=== PATIENT | male | born 1940 | race Caucasian/White ===

== ENCOUNTER 2016-09-06 11:25 | Emergency (ER) | payer MEDICARE ==
[2016-09-06 11:45] VITALS: BP 153/67
--- NOTE | 2016-09-06 12:11 | UC ---
Throat Pain/Nasal Omar HPI - HPI Summary HPI Summary: sinus pain and pressure x 7 days + nasal congestion, no fever, no chills, + bilateral plugged ears no fever, no chills, + dizziness - History of Current Complaint Chief Complaint: UCEar Stated Complaint: HEAD PRESSURE,EARS CLOGGED Time Seen by Provider: 09/06/16 11:28 Hx Obtained From: Patient Onset/Duration: Gradual Onset, Lasting Days - 7, Still Present Severity: Moderate Cough: None Associated Signs & Symptoms: Positive: Sinus Discomfort, Nasal Discharge. Negative: Dysphagia, FB Sensation, Drooling, Fever, Vomiting, Rash - Allergies/Home Medications Allergies/Adverse Reactions: Allergies Allergy/AdvReac Type Severity Reaction Status Date / Time Pioglitazone [From Actos] AdvReac "Didn't Verified 09/06/16 11:34 feel well" Home Medications: Home Medications Cetirizine* [ZyrTEC 10 MG TAB*] 10 mg PO DAILY 09/06/16 [History Confirmed 09/06] Insulin REGULAR(*) 22 units SUBCUT ONCE 09/06/16 [History Confirmed 09/06/16] Multiple Vitamin [Multiple Vitamins] 1 tab PO DAILY 09/06/16 [History Confirmed 09/06/16] Sitagliptin Phosphate [Januvia] 100 mg PO DAILY 09/06/16 [History Confirmed ] PMH/Surg Hx/FS Hx/Imm Hx Cardiovascular History: Hypertension - Surgical History Surgical History: Yes Surgery Procedure, Year, and Place: lower eye lids, cataract - Family History Known Family History: Positive: Hypertension - Social History Alcohol Use: None Substance Use Type: None Smoking Status (MU): Never Smoked Tobacco Review of Systems Constitutional: Negative Skin: Negative Eyes: Negative ENT: Nasal Discharge Respiratory: Negative Cardiovascular: Negative All Other Systems Reviewed And Are Negative: Yes Physical Exam Triage Information Reviewed: Yes Appearance: Well-Appearing, No Pain Distress, Well-Nourished Vital Signs: Initial Vital Signs Temp 97.5 F 09/06/16 11:39 Pulse 57 09/06/16 11:39 Resp 16 09/06/16 11:39 BP 153/67 09/06/16 11:39 Pulse Ox 100 09/06/16 11:39 Vital Signs Reviewed: Yes Eyes: Positive: Conjunctiva Clear ENT: Positive: Normal ENT inspection, Hearing grossly normal, Pharynx normal, Nasal congestion, Nasal drainage, TMs normal. Negative: Pharyngeal erythema, TM bulging, TM dull, TM red Neck exam: Normal Neck: Positive: Supple, Nontender, No Lymphadenopathy Respiratory: Positive: Chest non-tender, Lungs clear, Normal breath sounds Cardiovascular: Positive: RRR, No Murmur, Pulses Normal Abdominal Exam: Normal Neurological Exam: Normal Neurological: Positive: Alert Skin Exam: Normal Throat Pain/Nasal Course/Dx - Differential Dx/Diagnosis Provider Diagnoses: sinusitis Discharge - Discharge Plan Condition: Stable Disposition: HOME Prescriptions: Amoxicillin/Clavulanate TAB* [Augmentin TAB 875*] 875 mg PO BID #20 tab Fluticasone NASAL * [Flonase *] 2 spray BOTH NARES DAILY #1 spray Patient Education Materials: Sinusitis (ED) Referrals: Estrella Lim MD [Primary Care Provider] - 7 Days
== END 2016-09-06 12:26 | disposition home or self-care (01) ==
LOC: UCCORT 11:25
DX: J32.9 Chronic sinusitis, unspecified (principal)
CPT/HCPCS: 99212; G0463

== ENCOUNTER 2018-05-02 09:44 | Day surgery (SDC) | payer MEDICARE ==
[~2018-05-02 09:44] MED LIST: Buffered Lidocaine 1% SYRIN* 1 ML/SYRINGE INTRADERM ONE; Lactated Ringers 1000 ML Bag* 1,000 ML IV SCH
[2018-05-02] MEDS ORDERED: ceFAZolin 2 GM PREMIX in ORs 2 GM/50 ML BAG IVPB ONE (10:19)
[2018-05-02] MEDS ORDERED: Insulin REGULAR(*) 1 UNITS UNIT SUBCUT ONE (11:11)
[2018-05-02] MEDS ORDERED: Insulin REGULAR(*) 1 UNITS UNIT ONE (11:17)
[2018-05-02] MEDS ORDERED: Lidocaine 1% MPF wEPI 200,000* 30 ML SDV ONE ×2 (11:29→12:08)
[2018-05-02] MEDS ORDERED: Ropivacaine* 2 MG/ML 20 ML VIAL (0.2%) ONE ×2 (11:30→12:09)
[2018-05-02] MEDS ORDERED: fentaNYL* 50 MCG/ML 2 ML VIAL (100 MCG VIAL) ONE (12:26)
[2018-05-02] MEDS ORDERED: Propofol* 10 MG/ML 20 ML BTL ONE (12:47)
[2018-05-02] MEDS ORDERED: Lidocaine 2% PF * 5 ML VIAL ONE (12:47)
[2018-05-02] MEDS ORDERED: EPHEDrine (Pressors)* 50 MG/ML VIAL ONE (13:06)
[2018-05-02] MEDS ORDERED: Ondansetron INJ* 2 MG/ML VIAL ONE (13:36)
[2018-05-02] MEDS ORDERED: DiMENhydriNATE IV* 50 MG/ML VIAL IV PUSH PRN (13:50)
[2018-05-02] MEDS ORDERED: Naloxone* 0.4 MG/ML 1 ML VIAL IV PRN (13:50)
[2018-05-02] MEDS ORDERED: fentaNYL* 50 MCG/ML 2 ML VIAL (100 MCG VIAL) IV PRN (13:50)
[2018-05-02] MEDS ORDERED: oxyCODONE/Acetamin 5/325 MG* TAB ONE (14:36)
[2018-05-02 15:54] VITALS: BP 169/96
--- NOTE | 2018-05-02 23:57 | OP ---
CC: PCP, Estrella Lim MD * DATE OF OPERATION: 05/02/18 - [facility] DATE OF : 36 SURGEON: Dr. Giuliano Yadav. OVERHEAD CRANE TECHNICIAN: None available. ANESTHESIOLOGIST: Dr. Stallings. ANESTHESIA: General. PRE-OP DIAGNOSIS: Right knee medial meniscus tear. POST-OP DIAGNOSIS: Right knee medial and lateral meniscal tears. OPERATIVE PROCEDURE: Right knee arthroscopy with partial medial and partial lateral meniscectomy. COMPLICATIONS: None. ESTIMATED BLOOD LOSS: Minimal. TOURNIQUET TIME: Zero minutes. INDICATIONS: Paresh Reyna is a 77-year-old male who has injured his knee approximately 2 months ago. He has failed conservative management including physical therapy, antiinflammatories, ice, heat as well as steroid injection. He elected to proceed with surgical treatment. Risks and benefits of surgery were discussed at length including but not limited to bleeding; infection; damage to nerves, vessels and surrounding structures; wound nonhealing; persistent pain; need for further surgery; scarring; stiffness; incomplete relief of symptoms; risks of anesthesia. He has elected to proceed. He underwent preoperative medical risk optimization prior to proceeding with surgery. DESCRIPTION OF PROCEDURE: The patient was greeted in the preoperative area by the attending surgeon. Correct extremity was marked and consent was confirmed. The patient was brought back to the operating suite, where he was placed in supine position on the operating table. He then underwent general anesthesia and LMA intubation. An unsterile tourniquet was placed high on the proximal thigh. The lateral post was positioned. The right leg was then prepped and draped in usual sterile fashion using chlorhexidine soap, scrub, and alcohol wipe and a final prep with ChloraPrep. After appropriate surgical pause indicating side, site, procedure, and administration of antibiotics, the knee was intraarticularly injected with 1% lidocaine with epi. The anterolateral portal was made sharply with an 11 blade. Scope was introduced into the joint. Joint was examined. The ACL and PCL were intact. There was abundant synovitis anteriorly, which was removed using the shaver. There was some mild chondrosis of the medial femoral condyle , which had grade 1 and 2 changes. There was obvious medial meniscus degenerative tearing extending posteromedially all the way to the root. Veronique and biters were used to debride this back to a stable layer. Again, stable flap was also debrided back. The knee was placed in full extension. The trochlea had grade 0 to 1 changes. The patella had grade 0 to 1 changes. The medial and lateral gutters were intact without any loose debris. The knee was placed in a [id number] position and the lateral compartment examined. There were grade 0 to 1 changes in the lateral femoral condyle, lateral plateau , but there was evidence of a longitudinal tear of the meniscus. This was then debrided back using biters and veronique. Final images were obtained. The knee was thoroughly lavaged removing any loose debris. Wounds were copiously irrigated with sterile dressing. Portals were closed with 3-0 nylon. Sterile dressings were applied as well as a cryocuff. He was awoken from anesthesia and transferred to the PACU in stable condition. POSTOPERATIVE PLAN: He will be weightbearing as tolerated with crutches or walker for the first 3 to 5 days. He will be discharged on pain medications and antibiotics due to a small abrasion about the anterior aspect of the knee that was healed. I will see the patient back in 10 to 14 days. DVT prophylaxis was considered and he will go back on his Plavix and aspirin. I will see the patient back in 10 to 14 days. [id number]/[facility] #: [id number] ALLIE
== END 2018-05-02 16:02 | disposition home or self-care (01) ==
LOC: OR 09:44
PROVIDERS: ATTEND Orthopaedic Surgery
DX: S83.241A Other tear of medial meniscus, current injury, right knee, initial encounter (principal); S83.281A Other tear of lateral meniscus, current injury, right knee, initial encounter; X58.XXXA Exposure to other specified factors, initial encounter; Y92.9 Unspecified place or not applicable; I10 Essential (primary) hypertension; K21.9 Gastro-esophageal reflux disease without esophagitis; Z86.73 Personal history of transient ischemic attack (TIA), and cerebral infarction without residual deficits; Z79.01 Long term (current) use of anticoagulants; E11.9 Type 2 diabetes mellitus without complications; Z79.4 Long term (current) use of insulin; Z87.891 Personal history of nicotine dependence
CPT/HCPCS: A9270-GY; J0690; J2001; J2405; J2704; J2795; J3010

== ENCOUNTER 2018-07-18 17:11 | Emergency (ER) | payer MEDICARE ==
[2018-07-18 17:21] VITALS: BP 152/90
--- OUTSIDE RECORDS SUMMARY | 2018-07-18 17:21 | XMS REPORT | Continuity of Care Document ---
:1940 External Reference #:[id number] Author Name Leona Marshall Care Team Providers Name Role Phone Estrella Lim MD Primary Care Physician Unavailable Payers Date Identification Numbers Payment Provider Subscriber Policy Number: [id number] Medicare Paresh Romulus PayID: [id number] [address] [place] [address] Policy Number: [id number] [facility] PayID: [id number] [address] [place] [address] Advance Directives Description No Information Available Problems Active Problems Provider Date Shoulder joint pain Celestine Duran MD Onset: 08/17/2015 Unsteady gait Norah Thapa M.D. Onset: 01/28/2016 Dizziness Norah Thapa M.D. Onset: 01/28/[address] Kelley M.D. Onset: 08/16/[address] Kelley M.D. Onset: 08/16/[address] Kelley M.D. Onset: 09/25/[address] Kelley M.D. Onset: 09/25/2017 Acute meniscal tear, medial, horizontal Giuliano Yadav MD Onset: 04/19/2018 cleavage Localized, primary osteoarthritis Giuliano Yadav MD Onset: 06/14/2018 Family History Date Family Member(s) Observation Comments General Aortic Aneurysm General Heart Disease Social History Type Date Description Comments Sex Unknown Marital Status Lives With Occupation Retired Cigarette Use Quit 50 Years Ago Cigars Quit 20 Years Ago Pipe Quit 20 Years Ago Smokeless Tobacco Never Used Smokeless Tobacco ETOH Use Denies alcohol use Recreational Drug Use Denies Drug Use Tobacco Use Start: Unknown End: Patient is a former smoker Unknown Smoking Status Reviewed: 07/17/18 Patient is a former smoker Exercise Type/Frequency Exercises regularly Allergies, Adverse Reactions, Alerts Description No Known Drug Allergies Medications Active Medications SIG Qnty Indications Ordering Provider Date Plavix 1 by mouth every 90tabs 435.9 Chata Mishra NP 01/02/2014 75mg Tablets day Clonidine HCL 1 po qd Unknown 0.1mg Tablets Aspir-81 1 by mouth every Unknown 81mg Tablets DR day Bisoprolol Fumarate 1/2 by mouth Unknown 5mg every day Tablets Valsartan 1 by mouth every Unknown 160mg Tablets day Meclizine HCL 1 tab by mouth Unknown 12.5mg every 8 hours as Tablets needed Lantus Solostar inject 20 units Unknown q day 100Unit/ML Solution Pen-Inject Vitamin D take one capsule 14caps Unknown (Ergocalciferol) by mouth once weekly [id number] Capsules Tamsulosin HCL take 1 capsule Unknown 0.4mg at bedtime Capsules Vitamin C 1 by mouth every Unknown 500mg Capsules day Multivitamin Adult 1 by mouth every Unknown day Tablets Alfuzosin HCL ER Unknown 10mg Tablets ER 24HR Rosuvastatin Calcium Unknown 5mg Tablets History Medications Oxycodone-Acetaminophen 1 tabs by 15tabs Giuliano Yadav, 05/02/2018 - 5-325mg Tablets mouth every MD 05/14/2018 4-6 hours as needed for pain Cephalexin take 1 by 12caps Giuliano Yadav, 05/02/2018 - 500mg Capsules mouth four MD 05/14/2018 times a day x 3 days post op Medrol to be taken by 21units M25.51 Celestine Duran, 10/01/2015 - 4mg TBPK mouth as 1 MD 03/16/2017 directed. Naproxen 1 po bid prn 90tabs 726.10 Tabatha Syed, 07/25/2014 - 500mg Tablets pain M.DChiki 03/16/2017 Nasonex 2 puffs both 1units [facility] 08/19/2013 - 50mcg/Act Suspension sides one per [place], 12/20/2013 day M.DChiki Astepro one puff both 3units [facility] 08/19/2013 - 0.15% Solution sides once per [place], 12/13/2013 day M.DChiki Lipitor 1 by mouth qd 90tabs Unknown - 10mg Tablets 01/27/2016 Metformin HCL 1 by mouth 60tabs Unknown - 1000mg Tablets twice a day 12/13/2017 Januvia 1 by mouth 90tabs Unknown - 100mg Tablets every day 03/13/2017 Aggrenox 1 by mouth 180caps Unknown - 25-200mg Caps ER 12HR twice a day 07/24/2014 Diovan 1 by mouth Unknown - 160mg Tablets every day 01/27/2016 Nexium 1 by mouth 90caps Unknown - 20mg Capsules DR every day 07/24/2014 Meloxicam 1 by mouth 30tabs Unknown - 15mg Tablets every day 07/24/2014 Pioglitazone HCL As directed Unknown - 15mg Tablets 01/27/2016 Atorvastatin Calcium 1 by mouth Unknown - 10mg Tablets every other 09/24/2017 day Meloxicam take 1 tab by Unknown - 7.5mg Tablets mouth qdaily 03/13/2017 with food Erythromycin apply to Unknown - 5mg/GM Ointment Sutures four 08/13/2017 times a day Medications Administered in Office Medication SIG Qnty Indications Ordering Provider Date Celestone 3 mg and 3mg Kunal Dowd MD 03/12/2018 Injection Celestone 3 mg and 3mg Hipolito Pompa M.D. 01/17/2018 Injection Depomedrol 80MG Tabatha Syed M.D. 07/25/2014 Injection Immunizations Description No Information Available Vital Signs Date Vital Result Comment 07/17/2018 1:21pm Height 72 inches 6'0" Weight 240.00 lb Heart Rate 59 /min BP Systolic 168 mmHg BP Diastolic 78 mmHg Respiratory Rate 16 /min Body Temperature 97.0 F Pain Level 7 BMI (Body Mass Index) 32.5 kg/m2 06/14/2018 11:37am Height 72 inches 6'0" Weight 240.00 lb Heart Rate 59 /min BP Systolic 140 mmHg BP Diastolic 54 mmHg Body Temperature 98.0 F Pain Level 2 BMI (Body Mass Index) 32.5 kg/m2 05/15/2018 11:13am Height 72 inches 6'0" Weight 240.00 lb Heart Rate 47 /min BP Systolic 140 mmHg BP Diastolic 70 mmHg Body Temperature 97.4 F Pain Level 3 BMI (Body Mass Index) 32.5 kg/m2 04/19/2018 12:55pm Height 72 inches 6'0" Weight 245.00 lb BP Systolic 136 mmHg BP Diastolic 64 mmHg Respiratory Rate 20 /min Pain Level 8 BMI (Body Mass Index) 33.2 kg/m2 04/16/2018 10:45am Height 72 inches 6'0" Weight 245.00 lb Heart Rate 56 /min BP Systolic Sitting 122 mmHg R BP Diastolic Sitting 76 mmHg R Respiratory Rate 20 /min Pain Level 0 BMI (Body Mass Index) 33.2 kg/m2 04/09/2018 10:29am Height 72 inches 6'0" Weight 245.00 lb Heart Rate 66 /min BP Systolic Sitting 134 mmHg R BP Diastolic Sitting 80 mmHg R Respiratory Rate 18 /min Pain Level 0 BMI (Body Mass Index) 33.2 kg/m2 03/12/2018 1:12pm Height 72 inches 6'0" Weight 248.00 lb BP Systolic Sitting 122 mmHg BP Diastolic Sitting 60 mmHg Respiratory Rate 17 /min Pain Level 9 with rotation 9/10 BMI (Body Mass Index) 33.6 kg/m2 01/17/2018 10:28am Height 72 inches 6'0" Weight 248.00 lb BP Systolic Sitting 126 mmHg BP Diastolic Sitting 68 mmHg Respiratory Rate 17 /min Pain Level 0 pain is present with ambulation. Inner aspect. BMI (Body Mass Index) 33.6 kg/m2 12/13/2017 10:09am Height 72 inches 6'0" Weight 248.00 lb Heart Rate 48 /min BP Systolic 118 mmHg BP Diastolic 82 mmHg BMI (Body Mass Index) 33.6 kg/m2 09/25/2017 10:44am Height 72 inches 6'0" Weight 243.12 lb Heart Rate 68 /min BP Systolic 120 mmHg BP Diastolic 66 mmHg BMI (Body Mass Index) 33.0 kg/m2 08/16/2017 10:52am Height 72 inches 6'0" Weight 248.50 lb Heart Rate 70 /min BP Systolic Sitting 122 mmHg BP Diastolic Sitting 68 mmHg Respiratory Rate 20 /min O2 % BldC Oximetry 96 % BMI (Body Mass Index) 33.7 kg/m2 03/17/2017 8:48am Height 72 inches 6'0" Weight 242.12 lb Heart Rate 68 /min BP Systolic Sitting 140 mmHg BP Diastolic Sitting 78 mmHg Respiratory Rate 16 /min O2 % BldC Oximetry 99 % BMI (Body Mass Index) 32.8 kg/m2 07/25/2016 1:53pm Height 72 inches 6'0" Weight 235.00 lb Heart Rate 72 /min BP Systolic Sitting 134 mmHg BP Diastolic Sitting 72 mmHg Respiratory Rate 16 /min Pain Level 0 BMI (Body Mass Index) 31.9 kg/m2 01/28/2016 10:46am Height 72 inches 6'0" Weight 235.00 lb Heart Rate 82 /min BP Systolic Sitting 142 mmHg BP Diastolic Sitting 74 mmHg BMI (Body Mass Index) 31.9 kg/m2 10/01/2015 2:25pm Heart Rate 84 /min BP Systolic Sitting 138 mmHg BP Diastolic Sitting 78 mmHg 08/17/2015 2:50pm Height 72 inches 6'0" Weight 235.00 lb Heart Rate 72 /min BP Systolic Sitting 142 mmHg BP Diastolic Sitting 66 mmHg BMI (Body Mass Index) 31.9 kg/m2 08/08/2014 9:43am Heart Rate 60 /min BP Systolic Sitting 118 mmHg BP Diastolic Sitting 70 mmHg 07/25/2014 1:32pm Height 71 inches 5'11" Weight 240.00 lb Heart Rate 68 /min BP Systolic Sitting 148 mmHg BP Diastolic Sitting 70 mmHg BMI (Body Mass Index) 33.5 kg/m2 01/02/2014 2:21pm Height 71 inches 5'11" Weight 225.00 lb Heart Rate 80 /min BP Systolic Sitting 132 mmHg BP Diastolic Sitting 72 mmHg Respiratory Rate 16 /min BMI (Body Mass Index) 31.4 kg/m2 09/16/2013 1:43pm Heart Rate 82 /min BP Systolic Sitting 132 mmHg BP Diastolic Sitting 80 mmHg Results Test Date Facility Test Result H/L Range Note Laboratory test 05/02/2018 [facility] [place] of 204 mg/dL High 70-100 [address] [place] [address] [phone] Laboratory test 05/02/2018 [facility] [place] of 282 mg/dL High 70-100 [address] [place] [address] [phone] Laboratory test 05/02/2018 [facility] [place] of 314 mg/dL High 70-100 [address] [place] [address] [phone] Protein 10/04/2017 [facility] Total 134 mg/24h <229 4 Electrophoresis Urine [address] Protein(Pep) (24HR) [place] [address] Urine [phone] Collection Duration 24 h Urine Volume 3350 mL Total Protein Concentration 4 mg/dL Albumin 100 % Impression See Comment 5 Protein 09/27/2017 [facility] Total 116 mg/24h <229 [address] Protein(Pep) Urine (24HR) [place] [address] Urine [phone] Collection Duration 24 h Urine Volume 1650 mL Total Protein Concentration 7 mg/dL Albumin 100 % Impression See Comment 7 CBC Auto Diff 01/16/2014 [facility] White Blood 8.8 10^3/uL N 4.8-10.[address] [place] [address] [phone] Red Blood Count 4.29 10^6/uL N 4.0-5.4 Hemoglobin 13.4 g/dL Low 14.0-18.0 Hematocrit 40 % Low 42-52 Mean Corpuscular Volume 93 fL N 80-94 Mean Corpuscular Hemoglobin 31 pg N 27-31 Mean Corpuscular HGB Conc 34 g/dL N 31-36 Red Cell Distribution Width 12 % N 10.5-15 Platelet Count 222 10^3/uL N 150-450 Mean Platelet Volume 8 um3 N 7.4-10.4 Abs Neutrophils 5.6 10^3/uL N 1.5-7.7 Abs Lymphocytes 1.8 10^3/uL N 1.0-4.8 Abs Monocytes 0.8 10^3/uL N 0-0.8 Abs Eosinophils 0.5 10^3/uL N 0-0.6 Abs Basophils 0.1 10^3/uL N 0-0.2 Abs Nucleated RBC 0.39 10^3/uL N Granulocyte % 64.0 % N 38-83 Lymphocyte % 20.9 % Low 25-47 Monocyte % 8.7 % N 1-9 Eosinophil % 5.6 % N 0-6 Basophil % 0.8 % N 0-2 Nucleated Red Blood Cells % 4.5 N Basic Metabolic Panel 01/16/2014 [facility] Sodium 135 mmol/L N 133-145 [address] [place] [address] [phone] Potassium 4.0 mmol/L N 3.5-5.0 9 Chloride 102 mmol/L N 101-111 Co2 Carbon Dioxide 27 mmol/L N 22-32 Anion Gap 6 mmol/L N 2-11 Glucose 164 mg/dL High 70-100 Blood Urea Nitrogen 16 mg/dL N 6-24 Creatinine 0.89 mg/dL N 0.67-1.17 BUN/Creatinine Ratio 18.0 N 8-20 Calcium 9.4 mg/dL N 8.6-10.3 Egfr Non- 83.3 N >60 Egfr 107.2 N >60 10 Inr/Protime 01/16/2014 [facility] Inr 0.93 N 0.85-1.06 [address] [place] [address] [phone] Naphthalene Operator: [id number] Naphthalene Operator: [id number] Naphthalene Operator: [id number] 4 ADDITIONAL INFORMATION On 09/06/2016 the total protein assay method changed resulting in approximately a 15% increase in protein values. 5 RESULT: Albumin is the only protein detected. Test Performed by: [address] [id number] 6 ADDITIONAL INFORMATION On 09/06/2016 the total protein assay method changed resulting in approximately a 15% increase in protein values. 7 Albumin is the only protein detected. Insufficient urine volume submitted to maximally concentrate urine. If clinically indicated, submit new sample with adequate volume. Test Performed by: [facility] - [address] [address] 8 CALL RESULTS TO [phone] 9 Potassium reference range changed effective 01/12/14 10 Because ethnic data is not always readily available, this report includes an eGFR for both -Americans and non- Americans. The National Kidney Disease Education Program (NKDEP) does not endorse the use of the MDRD equation for patients that are not between the ages of 18 and 70, are , have extremes of body size, muscle mass, or nutritional status, or are non- or non-. According to the National Kidney Foundation, irrespective of diagnosis, the stage of the disease is based on the level of kidney function: Stage Description GFR(mL/min/1.73 m(2)) 1 Kidney damage with normal or decreased GFR 90 2 Kidney damage with mild decrease in GFR 60-89 3 Moderate decrease in GFR 30-59 4 Severe decrease in GFR 15-29 5 Kidney failure <15 (or dialysis) Procedures Date Code Description Status 05/02/2018 25380 Arthroscopy,Knee,Meniscectomy Media & Lateral Completed 03/12/2018 74792 Xray Knee 3 Views Completed 03/12/2018 86094 Inject/Drain Joint/Bursa Major W/O US Completed 01/17/2018 40806 Inject/Drain Joint/Bursa Intermediate W/O US Completed 09/15/2017 16553 Neuromuscular Junction Test Completed 09/15/2017 93620 Nerve Conduction 07-08 Studies Completed 09/15/2017 46710 Needle Electromyography Each Extremity W/Related Completed Paraspinal Areas 07/25/2014 90641 Rad Shoulder Comp, Min. 2 Views Completed 07/25/201450358 Inject/Drain Joint/Bursa Major W/O US Completed 03/08/2014 48470 Mobile Cardiovascular Telemetry Over 24 HR Up To 30 Days Completed 01/16/2014 80306 Color Flow Doppler/Interp & Reprt Completed 01/16/2014 22409 Pulse Wave/Continuous-Interp.RPT Completed 01/16/2014 24926 Echocardiography, Transesophageal, Real Time W/Image 2D Completed W/W/O M-M 01/07/2014 35320 EEG Recording Awake & Drowsy Completed 08/19/2013 22940 Tympanometry Completed Encounters Type Date Location Provider Dx Diagnosis Office Visit 04/19/2018 Orthopedic Giuliano Yadav MD S83.241D Oth tear of 1:00p Services Of [facility] medial meniscus, current injury, r knee, subs M17.11 Unilateral primary osteoarthritis, right knee Office Visit 04/16/2018 10:45a Orthopedic Kunal Dorman S83.241A Oth tear of Services Of Mela Dowd MD medial AT [place] meniscus, current injury, r knee, init Office Visit 04/09/2018 10:30a Orthopedic Kunal Dorman M23.303 Oth meniscus Services Of Mela Dowd MD derangements, AT [place] unsp medial meniscus, right knee S83.411D Sprain of medial collateral ligament of right knee, subs M25.561 Pain in right knee Office Visit 03/12/2018 1:15p Mara Dorman S83.411A Sprain of medial Services Of Mela Dowd MD collateral AT [place] ligament of right knee, init M23.303 Oth meniscus derangements, unsp medial meniscus, right knee M17.11 Unilateral primary osteoarthritis, right knee M25.561 Pain in right knee Office Visit 01/17/2018 10:30a Orthopedic Services Hipolito Pompa M25.562 Pain in left Of [employer]ist AT [place] M.D. knee M13.862 Other specified arthritis, left knee Office 12/13/2017 [place]/Rick Sherman R26.81 Unsteadiness on Visit 10:15a Neurologic Serv Rolando Kelley M.D. feet [facility] R42 Dizziness and giddiness G62.9 Polyneuropathy, unspecified M62.81 Muscle weakness (generalized) R53.82 Chronic fatigue, unspecified Office Visit 09/25/2017 Rick Kelley R26.81 Unsteadiness on 11:00a Neurologic Dhara feet Services Of Mela R42 Dizziness and giddiness R53.82 Chronic fatigue, unspecified M62.81 Muscle weakness (generalized) G62.9 Polyneuropathy, unspecified Office 08/16/2017 [place]/Rick Sherman R26.81 Unsteadiness on Visit 11:00a Neurologic Serv Rolando Kelley M.D. feet [facility] R42 Dizziness and giddiness R53.82 Chronic fatigue, unspecified M62.81 Muscle weakness (generalized) Office Visit 03/17/2017 8:45a [place]/Rick Tran R42 Dizziness and Neurologic Serv Of Dhara Thapa [facility] R26.81 Unsteadiness on feet R53.1 Weakness Office Visit 07/25/2016 1:45p [place]/Rick Tran R42 Dizziness and Neurologic Serv Of Dhara Thapa [facility] R26.81 Unsteadiness on feet Office Visit 01/28/2016 11:00a Rick Neurologic Norah Tran R42 Dizziness and Services Of Dhara Serrano R26.81 Unsteadiness on feet Office Visit 10/01/2015 2:30p Sports Medicine Celestine Duran MD M25.511 Pain in right Of [facility] AT shoulder [place] M47.12 Other spondylosis with myelopathy, cervical region Office Visit 08/17/2015 Sports Fnu Roger, S46.811D Strain of 2:30p Medicine Of musc/fasc/tend at [facility] AT shldr/up arm, right [place] arm, subs M19.011 Primary osteoarthritis, right shoulder Office Visit 08/08/2014 9:45a Orthopedic Tabatha Syed, 726.10 Bursae & Tendon Services Of [facility] [place] Disorders [place] Shoulder Region Unspec 715.11 Osteoarthrosis Localized Prim Shoulder Region Office Visit 07/25/2014 1:45p Orthopedic Tabatha Syed 726.10 Bursae & Tendon Services Of [facility] [place] Disorders [place] Shoulder Region Unspec 715.11 Osteoarthrosis Localized Prim Shoulder Region 723.1 Cervicalgia Office Visit 01/02/2014 2:00p [place] [facility] Norah Tran 435.9 TIA Ischemia Services Of [facility] Dhara Thapa Cerebral Transient Unspec Office Visit 09/16/2013 1:30p ENT Services Of [place] 472.0 Rhinitis Chronic C.M.A. 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 at [place]/ [place] [facility]08/21/2018 10:10 am - Masood Rob MD at [facility] Dermatology [facility]
--- NOTE | 2018-07-18 17:30 | UC ---
General HPI - HPI Summary HPI Summary: 77-year-old male comes in with a chief complaint of fall. Patient was walking in the parking lot and he was on some uneven pavement and he's been having a sinus infection with some nausea and dizziness associated with it and he's had knee surgery with accommodation of everything he fell. Denies hitting his head. He did get an abrasion to the right elbow. No point of any other pain. - History of Current Complaint Chief Complaint: UCGeneralIllness Stated Complaint: FELL IN OUR PARKING LOT Time Seen by Provider: 07/18/18 17:21 Pain Intensity: 0 - Allergy/Home Medications Allergies/Adverse Reactions: Allergies Allergy/AdvReac Type Severity Reaction Status Date / Time pioglitazone [From Actos] AdvReac Intermediate See Comment Verified 07/18/18 17: 21 Home Medications: Home Medications Amoxicillin PO (*) [Amoxicillin 875 MG (*)] 875 mg PO BID 07/18/18 [History Confirmed 07/18/18] Ergocalciferol (Vitamin D2) [Vitamin D2] 1.25 mg DAILY 07/18/18 [History Confirmed 07/18/18] PMH/Surg Hx/FS Hx/Imm Hx Previously Healthy: Yes Endocrine History: Diabetes, Dyslipidemia Cardiovascular History: Hypertension GI/ History: Gastroesophageal Reflux - Surgical History Surgical History: Yes Surgery Procedure, Year, and Place: lower + upper eye lids x2(10 yrs ago and 2 yrs ago)- no implant(turned lower lid outward instead of tucking inward), cataract BILATERAL, esophagus-stretch x 2. right knee 04/2018 meniscus - Family History Known Family History: Positive: Hypertension - Social History Alcohol Use: None Substance Use Type: None Smoking Status (MU): Former Smoker When Did the Patient Quit Smoking/Using Tobacco: 20-25 years ago Review of Systems All Other Systems Reviewed And Are Negative: Yes Constitutional: Positive: Negative Skin: Positive: Other - see hpi Eyes: Positive: Negative ENT: Positive: Other - see hpi Respiratory: Positive: Negative Cardiovascular: Positive: Negative. Negative: Chest Pain Gastrointestinal: Positive: Negative Motor: Positive: Weakness - generalized; chronic Neurovascular: Positive: Negative Musculoskeletal: Positive: Other: - see hpi Neurological: Positive: Weakness - generalized; chronic Psychological: Positive: Negative Is Patient Immunocompromised?: No Physical Exam Triage Information Reviewed: Yes Appearance: Well-Appearing, No Pain Distress, Well-Nourished Vital Signs: Initial Vital Signs Temp 98 F 07/18/18 17:13 Pulse 69 07/18/18 17:13 Resp 19 07/18/18 17:13 BP 152/90 07/18/18 17:13 Pulse Ox 100 07/18/18 17:13 Vital Signs Reviewed: Yes Eye Exam: Normal Eyes: Positive: Conjunctiva Clear Neck: Positive: Supple Respiratory: Positive: Lungs clear, Normal breath sounds, No respiratory distress Cardiovascular: Positive: RRR Musculoskeletal: Positive: ROM Intact Neurological: Positive: Alert Psychological Exam: Normal Psychological: Positive: Normal Response To Family, Age Appropriate Behavior Skin: Positive: Other - abrasion rt forearm 10cm x 3cm Course/Dx - Course Course Of Treatment: The patient fell in the parking lot. He has a combination of chronic generalized weakness, prior right knee surgery which slows down his ability to move his right knee and also because of the sinus infection reports being slightly off balance. No other injuries found on examination. Patient denied any chest pain. But as follows primary care doctor or reevaluate sooner if worse or any questions or concerns. - Diagnoses Provider Diagnosis: Fall, Weakness, Abrasion of right forearm Discharge - Sign-Out/Discharge Documenting (check all that apply): Patient Departure All imaging exams completed and their final reports reviewed: No Studies - Discharge Plan Condition: Stable Disposition: HOME Patient Education Materials: Abrasion (ED), Weakness (ED), Fall Prevention (ED) Referrals: Estrella Lim MD [Primary Care Provider] - Additional Instructions: FOLLOW UP WITH YOUR DOCTOR IF NOT COMPLETELY IMPROVED. GET RECHECKED SOONER IF YOUR CONDITION WORSENS OR ANY QUESTIONS OR CONCERNS. - Billing Disposition and Condition Condition: STABLE Disposition: Home
== END 2018-07-18 17:45 | disposition home or self-care (01) ==
LOC: UCCORT 17:11
DX: S50.811A Abrasion of right forearm, initial encounter (principal); R53.1 Weakness; W01.0XXA Fall on same level from slipping, tripping and stumbling without subsequent striking against object, initial encounter; Y93.01 Activity, walking, marching and hiking; Y92.481 Parking lot as the place of occurrence of the external cause; E11.9 Type 2 diabetes mellitus without complications; E78.5 Hyperlipidemia, unspecified; I10 Essential (primary) hypertension; K21.9 Gastro-esophageal reflux disease without esophagitis; Z87.891 Personal history of nicotine dependence; Z88.8 Allergy status to other drugs, medicaments and biological substances
CPT/HCPCS: 99212; G0463

== ENCOUNTER 2018-10-03 15:22 | Emergency (ER) | payer MEDICARE ==
--- OUTSIDE RECORDS SUMMARY | 2018-10-03 15:51 | XMS REPORT | Continuity of Care Document ---
:1940 External Reference #:[id number] Author Name Zhanna Abarca Care Team Providers Name Role Phone Estrella Lim MD Primary Care Physician Unavailable Payers Date Identification Numbers Payment Provider Subscriber Policy Number: [id number] Medicare Paresh Reyna PayID: [id number] [address] [place] [address] Policy Number: [id number] [facility] Paresh Mylo PayID: [id number] [address] [place] [address] Problems Active Problems Provider Date Shoulder joint [...] horizontal Giuliano Yadav MD Onset: 04/19/[address] Kelley M.D. Onset: 08/08/2018 Contusion of knee Giuliano Yadav MD Onset: 07/17/2018 Sprain of foot Giuliano Yadav MD Onset: 07/17/2018 Localized, primary osteoarthritis Giuliano Yadav MD Onset: 06/14/2018 Family History Date Family Member(s) Observation Comments General Aortic Aneurysm General Heart Disease General Hypertension General Cancer Father Heart Disease Father Hypertension Mother Cancer Social History Type Date Description Comments Sex Unknown Marital Status Lives With Occupation Retired Cigarette Use Quit 50 Years Ago Cigars Quit 20 Years Ago Pipe Quit 20 Years Ago Smokeless Tobacco Never Used Smokeless Tobacco ETOH Use Denies alcohol use Recreational Drug Use Denies Drug Use Tobacco Use Start: Unknown End: Patient is a former smoker Unknown Smoking Status Reviewed: 09/26/18 Patient is a former smoker Exercise Type/Frequency Exercises rarely Allergies, Adverse Reactions, Alerts Description No Known Drug Allergies Medications Active Medications SIG Qnty Indications Ordering Provider Date Gabapentin 1 by mouth at 30caps G62.9 Moses Al, 09/26/2018 100mg Capsules bedtime N.P. Plavix 1 by mouth every 90tabs 435.9 Chata Mishra NP 01/02/2014 75mg Tablets day Aspir-81 1 by mouth every Unknown 81mg Tablets DR day Meclizine HCL 1 tab by mouth Unknown 12.5mg every 8 hours as Tablets needed Lantus Solostar inject 42 units Unknown q day 100Unit/ML Solution Pen-Inject Vitamin D take one capsule 14caps Unknown (Ergocalciferol) by mouth once weekly [id number] Capsules Vitamin C 1 by mouth every Unknown 500mg Capsules day Multivitamin Adult 1 by mouth every Unknown day Tablets Alfuzosin HCL ER 1 tab daily by Unknown 10mg mouth Tablets ER 24HR Rosuvastatin Calcium 1 tab daily by Unknown 5mg mouth Tablets Metoprolol Succinate as needed Unknown ER 25mg Tablets ER 24HR History Medications Oxycodone-Acetaminophen 1 tabs by 15tabs Giuliano Yadva, 05/02/2018 - 5-325mg Tablets mouth every MD 05/14/2018 4-6 hours as needed for pain Cephalexin take 1 by 12caps Giuliano Yadav, 05/02/2018 - 500mg Capsules mouth four MD 05/14/2018 times a day x 3 days post op [facility] M[facility].51 Fnu Roger, 10/01/2015 - 4mg TBPK mouth as 1 MD 03/16/2017 directed. Naproxen 1 po bid prn 90tabs 726.10 Tabatha Kunal, 07/25/2014 - 500mg Tablets pain M.D. 03/16/2017 Nasonex 2 puffs [address] [place] [address] 08/19/2013 - 50mcg/Act Suspension sides one per [facility], 12/20/2013 day M.D. Astepro one puff both [facility] 08/19/2013 - 0.15% Solution sides once per [facility], 12/13/2013 day M.D. Digoxin 1 by mouth Unknown - 125mcg Tablets every day 09/25/2018 Amiodarone HCL 1 by mouth Unknown - 200mg Tablets every day 09/25/2018 Doxycycline Monohydrate take 1 capsule Unknown - 100mg Capsules by mouth twice 09/25/2018 a day Erythromycin apply to Unknown - 5mg/GM Ointment Sutures four 08/13/2017 times a day Tamsulosin HCL take 1 capsule Unknown - 0.4mg Capsules at bedtime 07/24/2018 Meloxicam take 1 tab by Unknown - 7.5mg Tablets mouth qdaily 03/13/2017 with food Valsartan 1 by mouth Unknown - 160mg Tablets every day 07/23/2018 Atorvastatin Calcium 1 by mouth Unknown - 10mg Tablets every other 09/24/2017 day Bisoprolol Fumarate 1/2 by mouth Unknown - 5mg Tablets every day 07/16/2018 Pioglitazone HCL As directed Unknown - 15mg Tablets 01/27/2016 Meloxicam 1 by mouth 30tabs Unknown - 15mg Tablets every day 07/24/2014 Nexium 1 by mouth 90caps Unknown - 20mg Capsules DR every day 07/24/2014 Diovan 1 by mouth Unknown - 160mg Tablets every day 01/27/2016 Aggrenox 1 by mouth 180caps Unknown - 25-200mg Caps ER 12HR twice a day 07/24/2014 Januvia 1 by mouth 90tabs Unknown - 100mg Tablets every day 03/13/2017 Clonidine HCL 1 po qd Unknown - 0.1mg Tablets 07/23/2018 Metformin HCL 1 by mouth 60tabs Unknown - 1000mg Tablets twice a day 12/13/2017 Lipitor 1 by mouth qd 90tabs Unknown - 10mg Tablets 01/27/2016 Medications Administered in Office Medication SIG Qnty Indications Ordering Provider Date Celestone 3 mg and 3mg Kunal Dowd MD 03/12/2018 Injection Celestone 3 mg and 3mg Hipolito Pompa M.D. 01/17/2018 Injection Depomedrol 80MG Tabatha Syed M.D. 07/25/2014 Injection Vital Signs Date Vital Result Comment 09/26/2018 11:29am Height 72 inches 6'0" Weight 235.00 lb Heart Rate 79 /min BP Systolic 129 mmHg BP Diastolic 78 mmHg BMI (Body Mass Index) 31.9 kg/m2 08/08/2018 10:35am Height 72 inches 6'0" Weight 245.00 lb Heart Rate 86 /min BP Systolic 138 mmHg BP Diastolic 74 mmHg BMI (Body Mass Index) 33.2 kg/m2 07/26/2018 8:20am Height 72 inches 6'0" Weight 249.00 lb Heart Rate 78 /min BP Systolic Sitting 120 mmHg BP Diastolic Sitting 70 mmHg Respiratory Rate 18 /min Pain Level 0 BMI (Body Mass Index) 33.8 kg/m2 07/17/2018 1:21pm Height 72 inches 6'0" Weight [...] 17 /min Pain Level 9 with rotation 11/20 BMI (Body Mass Index) 33.6 kg/m2 01/17/2018 [...] Result H/L Range Note Laboratory test 05/02/2018 [facility] of 204 mg/dL High 70-100 [address] [place] [address] [phone] Laboratory test 05/02/2018 [facility] of 282 mg/dL High 70-100 [address] [place] [address] [phone] Laboratory test 05/02/2018 [facility] of 314 mg/dL High 70-100 [address] [place] [address] [phone] Protein 10/04/2017 [facility] Total 134 mg/24h <229 4 Electrophoresis Urine [address] Protein(Pep) (24HR) [place] [address] Urine [phone] Collection Duration 24 h Urine Volume 3350 mL Total Protein Concentration 4 mg/dL Albumin 100 % Impression See Comment 5 Protein 09/27/2017 [facility] Total 116 mg/24h <229 [address] Protein(Pep) Urine (24HR) [place] [address] Urine [phone] Collection Duration 24 h Urine Volume 1650 mL Total Protein Concentration 7 mg/dL Albumin 100 % Impression See Comment 7 Inr/Protime 01/16/2014 [facility] Inr 0.93 N 0.85-1.[address] [place] [address] [phone] Basic Metabolic 01/16/2014 [facility] Sodium 135 mmol/L N 133- [address] [place] [address] [phone] Potassium 4.0 mmol/L N 3.5-5.0 9 Chloride 102 mmol/L N 101-111 Co2 Carbon Dioxide 27 mmol/L N 22-32 Anion Gap 6 mmol/L N 2-11 Glucose 164 mg/dL High 70-100 Blood Urea Nitrogen 16 mg/dL N 6-24 Creatinine 0.89 mg/dL N 0.67-1.17 BUN/Creatinine Ratio 18.0 N 8-20 Calcium 9.4 mg/dL N 8.6-10.3 Egfr Non- 83.3 N >60 Egfr 107.2 N >60 10 CBC Auto Diff 01/16/2014 [facility] White Blood 8.8 10^3/uL N 4.8-10.[address] [place] [address] [phone] Red Blood Count 4.29 10^6/uL N 4.0-5.4 [...] Nucleated Red Blood Cells % 4.5 N 1 First Aid Director: [id number] First Aid Director: [id number] First Aid Director: [id number] ADDITIONAL INFORMATION On 09/06/2016 the total protein assay method changed resulting in approximately a 15% increase in protein values. 5 RESULT: Albumin is the only protein detected. Test Performed by: [address] [id number] 6 ADDITIONAL INFORMATION On 09/06/2016 the total protein assay method changed resulting in approximately a 15% increase in protein values. 7 Albumin is the only protein detected. Insufficient urine volume submitted to maximally concentrate urine. If clinically indicated, submit new sample with adequate volume. Test Performed by: [address] [id number] 8 CALL RESULTS TO [id number] 9 Potassium reference range changed effective 01/12/14 [...] dialysis) Procedures Date Code Description Status 05/02/2018 97732 Arthroscopy,Knee,Meniscectomy Media & Lateral Completed 03/12/2018 78010 Xray Knee 3 Views Completed 03/12/2018 56471 Inject/Drain Joint/Bursa Major W/O US Completed 01/17/2018 92967 Inject/Drain Joint/Bursa Intermediate W/O US Completed 09/15/2017 19530 Neuromuscular Junction Test Completed 09/15/2017 60943 Nerve Conduction 07-08 Studies Completed 09/15/2017 51706 Needle Electromyography Each Extremity W/Related Completed Paraspinal Areas 07/25/2014 32951 Rad Shoulder Comp, Min. 2 Views Completed 07/25/201456321 Inject/Drain Joint/Bursa Major W/O US Completed 03/08/2014 02132 Mobile Cardiovascular Telemetry Over 24 HR Up To 30 Days Completed 01/16/2014 98046 Color Flow Doppler/Interp & Reprt Completed 01/16/2014 12012 Pulse Wave/Continuous-Interp.RPT Completed 01/16/2014 47166 Echocardiography, Transesophageal, Real Time W/Image 2D Completed W/W/O M-M 01/07/2014 93958 EEG Recording Awake & Drowsy Completed 08/19/2013 69286 Tympanometry Completed Encounters Type Date Location Provider Dx Diagnosis Office Visit 08/08/2018 [place]/Rick Kelley, G62.9 Polyneuropathy, 10:30a Neurologic Serv Of [place] unspecified Mela R26.81 Unsteadiness on feet R53.1 Weakness I48.91 Unspecified atrial fibrillation Office Visit 07/26/2018 Orthopedic Kunal Dorman M43.06 Spondylolysis, 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 foot, initial encounter S80.01xA Contusion of right knee, initial encounter W19.xxxA Unspecified fall, initial encounter Office Visit 04/19/2018 1:00p Orthopedic Giuliano Yadav, S83.241D Oth tear of Services Of medial C.M.A. meniscus, current injury, r knee, subs M17.11 Unilateral primary osteoarthritis, right knee Office Visit 04/16/2018 10:45a Orthopedic Kunal Dorman S83.241A Oth tear of Services Of Mela Dowd MD medial AT [place] meniscus, current injury, r knee, init Office Visit 04/09/2018 10:30a Orthopedic Kunal Dorman M23.303 Oth meniscus Services Of Mela Dowd MD derangements, AT [place] unsp medial meniscus, right knee S83.411D Sprain of medial collateral ligament of right knee, subs M25.561 Pain in right knee Office Visit 03/12/2018 1:15p Orthopedic Kunal Dorman S83.411A Sprain of medial Services Of Mela Dowd MD collateral AT [place] ligament of right knee, init M23.303 Oth meniscus derangements, unsp medial meniscus, right knee M17.11 Unilateral primary osteoarthritis, right knee M25.561 Pain in right knee Office Visit 01/17/2018 10:30a Orthopedic Services Hipolito Pompa, M25.562 Pain in left Of [facility] AT [place] M.D. knee M13.862 Other specified arthritis, left knee Office 12/13/2017 [place]/Rick Sherman R26.81 Unsteadiness on Visit 10:15a Neurologic Serv Of [place] Kelley feet [facility] R42 Dizziness and giddiness G62.9 Polyneuropathy, unspecified M62.81 Muscle weakness (generalized) R53.82 Chronic fatigue, unspecified Office Visit 09/25/2017 Rick Kelley R26.81 Unsteadiness on 11:00a Neurologic MBrianne feet Services Of [employer] R42 Dizziness and giddiness R53.82 Chronic fatigue, unspecified M62.81 Muscle weakness (generalized) G62.9 Polyneuropathy, unspecified Office 08/16/2017 [place] [facility] R26.81 Unsteadiness on Visit 11:00a Neurologic Serv Of [place] Kelley feet [facility] R42 Dizziness and giddiness R53.82 Chronic fatigue, unspecified M62.81 Muscle weakness (generalized) Office Visit 03/17/2017 8:45a [place]/Rick Tran R42 Dizziness and Neurologic Serv Of Dhara Thapa giamarilisiness [facility] R26.81 Unsteadiness on feet R53.1 Weakness Office Visit 07/25/2016 1:45p [place]/Rick Tran R42 Dizziness and Neurologic Serv Of Dhara Thapa [facility] R26.81 Unsteadiness on feet Office Visit 01/28/2016 11:00a [place] Hailey Tran R42 Dizziness and Services Of Dhara Serranoiness R26.81 Unsteadiness on feet Office Visit 10/01/2015 2:30p Sports Medicine Fnu MD Roger M25.511 Pain in right Of [facility] AT shoulder [place] M47.12 Other spondylosis with myelopathy, cervical region Office Visit 08/17/2015 Sports Fnu Roger, S46.811D Strain of 2:30p Medicine Of musc/fasc/tend at [facility] AT shldr/up arm, right [place] arm, subs M19.011 Primary osteoarthritis, right shoulder Office Visit 08/08/2014 9:45a Orthopedic Tabatha Syed, 726.10 Bursae & Tendon Services Of [facility] AT [facility] [place] Shoulder Region Unspec 715.11 Osteoarthrosis Localized Prim Shoulder Region Office Visit 07/25/2014 1:45p Orthopedic Tabatha Syed 726.10 Bursae & Tendon Services Of [facility] AT [facility] Disorders [place] Shoulder Region Unspec 715.11 Osteoarthrosis Localized Prim Shoulder Region 723.1 Cervicalgia Office Visit 01/02/2014 2:00p [place] Tran 435.9 TIA Ischemia Services Of Mela Thapa M.D. Cerebral Transient Unspec Office Visit 09/16/2013 1:30p ENT Services Of Bobby 472.0 Rhinitis Chronic C.M.A. 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 at [place]/ [place] Neurologic Serv Of [facility]08/27/2019 10:30 am - Masood Rob MD at [facility] Dermatology AT [place]58/17/2019 - Moses Al N.OrvilleG62.9 Polyneuropathy, unspecifiedNew Medication:Gabapentin 100 mg - 1 by mouth at bedtimeFollow up:[address] KelleyR26.81 Unsteadiness on feetR53.1 WeaknessNew Labs:CBC Auto Diff, Ordered: 09/26/18Comp Metabolic Panel, Ordered: 09/26/18Creatine Kinase(CK ), Ordered: 09/26/18Myoglobin, Ordered: 09/26/18Aldolase, Ordered: Recommendations:Continue PTI48.91 Unspecified atrial fibrillation
--- OUTSIDE RECORDS SUMMARY | 2018-10-03 15:54 | XMS REPORT | Continuity of Care Document ---
:1940 External Reference #:[id number] Author Name Radha Pike MD Address [address] [place] [address] Care Team Providers Name Role Phone Estrella Lim MD Care Team Information Residential Recycle Driver Unavailable Estrella Lim MD Primary Care Physician Unavailable Payers Date Identification Numbers Payment Provider Subscriber Policy Number: [id number] Medicare Norman Hartman PayID: [id number] [address] [place] [address] Expires: 2017 Policy Number: [id number] Medicare Norman Bay PayID: [id number] [address] [place] [address] [address]: [id number] [facility] [id number] [address] [place] [address] Problems Active Problems Provider Date Screening for malignant neoplasm of prostate Law Lara M.D. Onset: Benign prostatic hypertrophy with outflow Law Lara M.D. 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 Onset: 02/27/2017 Pure hypercholesterolemia Radha Pike MD Onset: 10/10/2017 Family History Date Family Member(s) Observation Comments Father Hypertension : (age 48 Years) Father due to Unknown Causes Mother Parkinson's Disease : (age 93 Years) Mother due to Unknown Causes Social History Type Date Description Comments Sex Unknown Marital Status Lives With Home Environment Lives With Diet Patient follows no dietary restrictions Occupation Retired [employer] Work Status Retired ADL's/IADL's Independent with all ADL's Tobacco Use Start: Unknown End: Former Cigarette Smoker quit 60 years cigs Unknown 30years ago quit occasional cigar Smoking Status Reviewed: 09/03/18 Former Cigarette Smoker quit 60 years cigs 30years ago quit occasional cigar ETOH Use Denies alcohol use Tobacco Use Start: Unknown Patient denies history of smoking Recreational Drug Use Never Used Drugs Allergies, Adverse Reactions, Alerts Description No Known Drug Allergies Medications Active Medications SIG Qnty Indications Ordering Date Provider Propranolol HCL 1 tab by mouth as 30tabs I47.1 Donnie, 09/06/2018 20mg needed for To Tran M.D., Tablets palpitations (do not FACC take more than twice in a 24 hour period) Alfuzosin HCL ER 1 by mouth every day 30tabs Marco, 10/17/2017 10mg Dhara Foy Tablets ER 24HR Plavix 1 by mouth every day Unknown 75mg Tablets Aspir-Low 1 by mouth every day Unknown 81mg Tablets DR Multivitamin Adult 1 by mouth every day Unknown Tablets Lantus 38u once a day Unknown 100Unit/ML Solution Rosuvastatin Calcium 1 tab by mouth daily Unknown 5mg Tablets Vitamin C 1 by mouth every day Unknown 500mg Capsules Valsartan 1 by mouth every day 90tabs Unknown 160mg Tablets History Medications Metoprolol Succinate 1 by mouth 30tabs I47.1 To Fields 08/16/2018 - ER every night Dhara Tran, FACC Unknown 25mg Tablets ER 24HR I10 Tamsulosin HCL 1 by mouth every 90caps N40.1 Law Lara, 02/27/2017 - 0.4mg day at bedtime MarcDChiki 04/24/2018 Capsules Keflex every 6hrs Unknown - 500mg Capsules 02/27/2017 Atorvastatin Calcium 1 by mouth every Unknown - other am Unknown 10mg Tablets Bisoprolol Fumarate 1/2 by mouth Unknown - 5mg every day Unknown Tablets Clonidine HCL 1 q bedtime Unknown - 0.1mg Unknown Tablets Diovan 1 by mouth every Unknown - 160mg Tablets day Unknown Metformin HCL take one tablet Unknown - 1000mg by mouth twice a 03/26/2018 Tablets day Doxycycline Hyclate 1 cap bid Unknown - 09/03/2018 100mg Capsules Digitek take 1 tablet by I47.1 Unknown - 125mcg Tablets mouth once daily 08/16/2018 Amiodarone HCL take 1 tablet by I47.1 Unknown - 200mg mouth once daily 08/16/2018 Tablets Vital Signs Date Vital Result Comment 09/06/2018 11:25am BP Systolic Sitting Left Arm 132 mmHg BP Diastolic Sitting Left Arm 64 mmHg Heart Rate 84 /min Respiratory Rate 18 /min Weight 241.00 lb O2 % BldC Oximetry 98 % ora 09/03/2018 3:49pm BP Systolic 133 mmHg BP Diastolic 76 mmHg Heart Rate 67 /min Height 72 inches 6'0" Weight 242.00 lb BMI (Body Mass Index) 32.8 kg/m2 BSA (Body Surface Area) 2.31 m2 [place] body weight in kilograms 81 kg O2 % BldC Oximetry 98 % 08/16/2018 11:43am BP Systolic Sitting Left Arm 140 mmHg BP Diastolic Sitting Left Arm 64 mmHg Heart Rate 79 /min Respiratory Rate 18 /min Weight 243.00 lb O2 % BldC Oximetry 93 % Ora 07/31/2018 3:15pm BP Systolic 176 mmHg automatic BP Diastolic 84 mmHg automatic BP Systolic Lying Down Resting Right Arm 164 mmHg manual BP Diastolic Lying Down Resting Right Arm 82 mmHg manual Body Temperature 96.8 F Heart Rate 104 /min Respiratory Rate 20 /min Weight 249.00 lb O2 % BldC Oximetry 97 % Ra Pain Level 0 07/25/2018 1:34pm BP Systolic 118 mmHg BP Diastolic 62 mmHg Heart Rate 100 /min Respiratory Rate 18 /min Height 72 inches 6'0" Weight 240.00 lb BMI (Body Mass Index) 32.5 kg/m2 BSA (Body Surface Area) 2.30 m2 [place] body weight in kilograms 81 kg O2 % BldC Oximetry 98 % 05/23/2018 3:08pm BP Systolic 146 mmHg BP Diastolic 64 mmHg Body Temperature 96.8 F Heart Rate 48 /min Height 72 inches 6'0" Weight 258.00 lb BMI (Body Mass Index) 35.0 kg/m2 BSA (Body Surface Area) 2.37 m2 [place] body weight in kilograms 81 kg O2 % BldC Oximetry 94 % 04/23/2018 12:56pm BP Systolic Sitting Left Arm 118 mmHg BP Diastolic Sitting Left Arm 66 mmHg Heart Rate 54 /min Respiratory Rate 16 /min Height 72 inches 6'0" Weight 254.00 lb BMI (Body Mass Index) 34.4 kg/m2 BSA (Body Surface Area) 2.36 m2 [place] body weight in kilograms 81 kg 03/26/2018 2:04pm BP Systolic 142 mmHg BP Diastolic 61 mmHg Body Temperature 97.7 F Heart Rate 54 /min Respiratory Rate 16 /min Height 72 inches 6'0" Weight 249.25 lb BMI (Body Mass Index) 33.8 kg/m2 BSA (Body Surface Area) 2.34 m2 [place] body weight in kilograms 81 kg O2 % BldC Oximetry 98 % Pain Level 0 10/10/2017 11:55am BP Systolic Sitting Right Arm 130 mmHg BP Diastolic Sitting Right Arm 70 mmHg Heart Rate 55 /min Respiratory Rate 18 /min Height 72 inches 6'0" Weight 245.00 lb BMI (Body Mass Index) 33.2 kg/m2 BSA (Body Surface Area) 2.32 m2 [place] body weight in kilograms 81 kg O2 % BldC Oximetry 97 % Room air 09/21/2017 10:09am BP Systolic 144 mmHg BP Diastolic 73 mmHg Body Temperature 97.7 F Heart Rate 54 /min Respiratory Rate 18 /min Height 72 inches 6'0" Weight 244.00 lb BMI (Body Mass Index) 33.1 kg/m2 BSA (Body Surface Area) 2.32 m2 [place] body weight in kilograms 81 kg O2 % BldC Oximetry 98 % Pain Level 0 05/11/2017 8:18am BP Systolic 153 mmHg BP Diastolic 75 mmHg Body Temperature 97.3 F Heart Rate 64 /min Respiratory Rate 18 /min Height 72 inches 6'0" Weight 243.38 lb BMI (Body Mass Index) 33.0 kg/m2 BSA (Body Surface Area) 2.32 m2 [place] body weight in kilograms 81 kg O2 % BldC Oximetry 100 % Pain Level 0 03/15/2017 10:30am BP Systolic Sitting Left Arm 120 mmHg BP Diastolic Sitting Left Arm 58 mmHg Heart Rate 60 /min Respiratory Rate 16 /min Height 72 inches 6'0" Weight 243.00 lb BMI (Body Mass Index) 33.0 kg/m2 BSA (Body Surface Area) 2.31 m2 [place] body weight in kilograms 81 kg 03/09/2017 10:41am BP Systolic 147 mmHg BP Diastolic 68 mmHg Body Temperature 98.2 F 36.8C Heart Rate 67 /min Respiratory Rate 18 /min Height 72 inches 6'0" Weight 243.19 lb BMI (Body Mass Index) 33.0 kg/m2 BSA (Body Surface Area) 2.32 m2 [place] body weight in kilograms 81 kg O2 % BldC Oximetry 99 % Pain Level 0 02/27/2017 10:47am BP Systolic 164 mmHg BP Diastolic 76 mmHg Body Temperature 95.8 F tymp Heart Rate 63 /min Respiratory Rate 20 /min Height 72 inches 6'0" Weight 246.00 lb BMI (Body Mass Index) 33.4 kg/m2 BSA (Body Surface Area) 2.33 m2 [place] body weight in kilograms 81 kg O2 % BldC Oximetry 100 % Pain Level 0 Results Test Date Facility Test Result H/L Range Note Basic Metabolic 08/07/2018 [facility] Glucose 134 mg/dL High 74-106 1 Panel [address] [place], [place] [id number] [phone] BUN 10 mg/dL N 7-18 Creatinine 0.9 mg/dL N 0.6-1.3 Glom Filtration Rate, Estimate >60 mL/min >60 If >60 mL/min >60 2 BUN/Creat 11.1 ratio Sodium 139 mmol/L N 136-145 Potassium 3.8 mmol/L N 3.5-5.1 Chloride 108 mmol/L High 98-107 Carbon Dioxide 24 mmol/L N 21-32 Anion Gap 7 mEq/L Low 8-16 Calcium 8.7 mg/dL N 8.5-10.1 CBC 08/07/2018 [facility] White Blood Count 8.8 K/uL N 3.4-10.5 [address] [place] [address] [phone] Red Blood Count 4.01 M/uL Low 4.20-5.80 Hemoglobin 12.8 gm/dL N 12.8-17.0 Hematocrit 37.2 % Low 38.0-48.0 Mean Cell Volume 92.8 fl N 80.0-96.0 Mean Corpuscular HGB 31.9 pg N 27.0-33.0 Mean Corpuscular HGB Conc 34.4 g/dL N 31.7-36.0 Platelet Count 219 K/uL N 155-360 Red Cell Distri Width SD 41.9 fl N 36-51 Red Cell Distri Width %CV 12.3 % N 11.6-15.8 Mean Platelet Volume 10.3 fl N 6.6-10.6 NRBC % 0.0 /100WBC < 10/ 100 WBC Basic Metabolic Panel 08/06/2018 [facility] Glucose 100 mg/dL N 74-106 3 [address] [place] [address] [phone] BUN 12 mg/dL N 7-18 Creatinine 1.0 mg/dL N 0.6-1.3 Glom Filtration Rate, Estimate >60 mL/min >60 If >60 mL/min >60 4 BUN/Creat 12.0 ratio Sodium 140 mmol/L N 136-145 Potassium 3.8 mmol/L N 3.5-5.1 Chloride 109 mmol/L High 98-107 Carbon Dioxide 25 mmol/L N 21-32 Anion Gap 6 mEq/L Low 8-16 Calcium 8.2 mg/dL Low 8.5-10.1 Laboratory test finding 08/06/2018 [facility] Magnesium 1.9 mg/dL N 1.8-2.4 [address] [place] [address] [phone] Thyroxine (T4) 7.9 g/dL N 4.7-13.3 Thyroid Stim Hormone 0.59 uIU/mL N 0.30-4.20 Laboratory test 08/06/2018 [facility] Free T3 2.33 pg/mL N 2.18-3.98 finding [address] [place] [address] [phone] CBC 08/06/2018 [facility] White Blood 9.0 K/uL N 3.4-10.5 [address] [place] [address] [phone] Red Blood Count 3.87 M/uL Low 4.20-5.80 Hemoglobin 12.0 gm/dL Low 12.8-17.0 Hematocrit 36.5 % Low 38.0-48.0 Mean Cell Volume 94.3 fl N 80.0-96.0 Mean Corpuscular HGB 31.0 pg N 27.0-33.0 Mean Corpuscular HGB Conc 32.9 g/dL N 31.7-36.0 Platelet Count 202 K/uL N 155-360 Red Cell Distri Width SD 42.5 fl N 36-51 Red Cell Distri Width %CV 12.2 % N 11.6-15.8 Mean Platelet Volume 10.4 fl N 6.6-10.6 NRBC % 0.0 /100WBC < 10/ 100 WBC Aot Request 08/06/2018 [facility] Aot Request Test(s) added [address] [place] [address] [phone] Tests to be added: mag, tsh,t3,t4 CBC W/Automated Diff 08/05/2018 [facility] White Blood 9.5 K/uL N 3.4-10.[address] [place] [address] [phone] Red Blood Count 4.03 M/uL Low 4.20-5.80 Hemoglobin 12.8 gm/dL N 12.8-17.0 Hematocrit 37.3 % Low 38.0-48.0 Mean Cell Volume 92.6 fl N 80.0-96.0 Mean Corpuscular HGB 31.8 pg N 27.0-33.0 Mean Corpuscular HGB Conc 34.3 g/dL N 31.7-36.0 Platelet Count 237 K/uL N 155-360 Red Cell Distri Width SD 41.8 fl N 36-51 Red Cell Distri Width %CV 12.3 % N 11.6-15.8 Mean Platelet Volume 10.7 fl High 6.6-10.6 Neut% 60.1 % N 33.0-73.0 Lymph % 25.4 % N 20.0-42.0 [place] % 9.5 % N 0.0-10.0 Eo% 3.8 % N 0.0-6.6 Bas% 0.6 % N 0.0-1.1 Immature Grans 0.6 % N 0.0-5.0 NRBC % 0.0 /100WBC < 10/ 100 WBC Neut# 5.72 K/uL N 1.8-7.0 Lymph # 2.42 K/uL N 1.0-4.0 [place] # 0.91 K/uL High 0.0-0.8 Eos # 0.36 K/uL N 0.0-0.5 Baso # 0.06 K/uL N 0.0-0.1 Immature Grans Absolute 0.06 K/uL NRBC # 0.00 K/uL Basic Metabolic Panel 08/05/2018 [facility] Glucose 150 mg/dL High 74-[address] [place] [address] [phone] BUN 15 mg/dL N 7-18 Creatinine 0.9 mg/dL 0.6-1.3 Glom Filtration Rate, Estimate >60 mL/min >60 If >60 mL/min >60 6 BUN/Creat 16.6 ratio Sodium 137 mmol/L N 136-145 Potassium 3.8 mmol/L N 3.5-5.1 Chloride 106 mmol/L N 98-107 Carbon Dioxide 23 mmol/L N 21-32 Anion Gap 8 mEq/L N 8-16 Calcium 8.6 mg/dL N 8.5-10.1 Glycohemoglobin 08/05/2018 [facility] Glycohemoglobin 8.8 % High 4.2-6.[address] (A1c) [place] [address] [phone] eAG 206 mg/dL Laboratory test 03/15/2018 N2N/CCD Import Hemoglobin A1c 10.1 % High 0- 5.6 8, 9 finding Basic Metabolic 03/15/2018 N2N/CCD Import BUN/Creatinine 19.4 1 6-22 Panel Ratio Calcium 9.4 mg/dL 8.6-10.3 Carbon Dioxide 27 mmol/L 20-32 10 Chloride 103 mmol/L 98-110 Creatinine 1.07 mg/dL 0.7-1.18 11 Egfr 76 ML/MIN/1.73M2 Egfr Non-Afr. Congolese 66 ML/MIN/1.73M2 Glucose 243 mg/dL High 65-99 12 Potassium 4.1 mmol/L 3.5-5.3 Sodium 138 mmol/L 135-146 Urea Nitrogen (BUN) 21 mg/dL 7-25 Lipid Panel 03/15/2018 N2N/CCD Import Cholesterol 118 mg/dL Cholesterol/HDL Ratio 2.7 CALC HDL Cholesterol 43 mg/dL LDL Chol,Calculated 54 mg/dL 0-100 13 Non-HDL Cholesterol 75 mg/dL 14 Triglycerides 124 mg/dL Laboratory test finding 10/31/2017 N2N/[place] Import Glucose 145 mg/dL High 65-99 15 Hemoglobin A1c 7.3 % High 0-5.6 16 Laboratory test 08/03/2017 N2N/CCD Import Hemoglobin A1c 7.9 % High 0- 5.6 17 finding Basic Metabolic 08/03/2017 N2N/[place] Import BUN/Creatinine 12.8 1 6-22 Panel Ratio Calcium 9.3 mg/dL 8.6-10.3 Carbon Dioxide 27 mmol/L 20-31 Chloride 101 mmol/L 98-110 Creatinine 0.96 mg/dL 0.70-1.18 18 Egfr 87 ML/MIN/1.73M2 > Or=60 Egfr Non-Afr. Cong[place] 75 ML/MIN/1.73M2 > Or=60 Glucose 231 mg/dL High 65-99 19 Potassium 5.0 mmol/L 3.5-5.3 Sodium 135 mmol/L 135-146 Urea Nitrogen (BUN) 12 mg/dL 7-25 Lipid Panel 08/03/2017 [employer] [place] Import Cholesterol 107 mg/dL <199 Cholesterol/HDL Ratio 3.0 CALC <5.0 HDL Cholesterol 36 mg/dL Low >40 LDL Chol,Calculated 45 mg/dL 0-100 20 Non-HDL Cholesterol 71 mg/dL <130 21 Triglycerides 190 mg/dL High <150 Laboratory test 07/20/2017 [employer] [place] Import C-Reactive Protein 1.1 mg/L < 8.0 finding (CRP) Esr,Westergren 9 MM/HR 0-20 PSA,Total 1.8 ng/mL < Or=4.0 22 T4,Free 1.2 ng/dL 0.8-1.8 TSH 0.52 mIU/L 0.40-4.50 Testosterone,Total,LC/MS/MS 361 ng/dL 250-1100 23 Theodore & Rheumatoid Factor 07/20/2017 [employer] [place] Import Theodore Screen Negative Negative 24 Rheumatoid Factor < 14 Iu/ml <14 [facility] 07/20/2017 [employer] Import Vitamin D,25-Oh,D2 35 ng/mL 25 25-Hydroxyvitamin D(D2,D3) Vitamin D,25-Oh,D3 11 ng/mL Vitamin D,25-Oh,Total 46 ng/mL 30-100 Vitamin B12/Folate Panel 07/20/2017 N2N/CCD Import Folate,Serum >24.0 ng/ mL 26 Serum Vitamin B12,Serum 719 pg/mL 200-1100 Laboratory test 07/04/2017 N2N/CCD Import BUN/Creatinine Ratio 14.2 1 6- 22 finding Carbon Dioxide 23 mmol/L 20-31 Chloride 103 mmol/L 98-110 Creatinine 1.03 mg/dL 0.70-1.18 27 Eag (MG/DL) 189 CALC Eag (Mmol/L) 10.4 CALC Glucose 180 mg/dL High 65-99 28 Hemoglobin A1c 8.2 % High 0-5.6 29 Potassium 4.7 mmol/L 3.5-5.3 Sodium 136 mmol/L 135-146 Urea Nitrogen (BUN) 15 mg/dL 7-25 CBC W/ Diff & PLT 07/04/2017 N2N/CCD Import Anisocytosis Pending Bands,% Pending Bands,Absolute Pending Basophilic Stippling Pending Basophils,% 1 % 0-1 30 Basophils,Absolute 60 cells/uL 0-200 Blast Cells,Absolute Pending Blasts,% Pending Comment Pending Eosinophils,% 2 % 0-4 Eosinophils,Absolute 200 cells/uL 15-500 Hematocrit 40.6 % 38.5-50.0 Hemoglobin 13.2 g/dL 13.2-17.1 Hypochromasia Pending Lymphocytes,Absolute 2050 cells/uL 850-3900 MCH 30.8 pg 27.0-33.0 MCHC 32.6 g/dL 32.0-36.0 MCV 94.4 FL 80.0-100.0 MPV 8.5 FL 7.5-12.5 Macrocytosis Pending Metamyelocytes,% Pending Metamyelocytes,Absolute Pending Microcytosis Pending Monocytes,% 6 % 4-12 Monocytes,Absolute 650 cells/uL 200-950 Myelocytes,% Pending Myelocytes,Absolute Pending Neutrophils,Absolute 7770 cells/uL [phone] Nucleated RBC Pending Nucleated RBC,Absolute Pending Platelet Count 242 thous/uL 140-400 Platelet Sufficiency Pending Poikilocytosis Pending Polychromasia Pending Promyelocytes,% Pending Promyelocytes,Absolute Pending RBC 4.30 mill/uL 4.20-5.80 RBC Morphology Pending RDW 13.7 % 11.0-15.0 Target Cells Pending Total Lymphocytes,% 19 % 12-47 Total Neutrophils,% 72 % 40-75 WBC 10.7 thous/uL 3.8-10.8 CBS W/Automated Diff 02/16/2017 N2N/CCD Import Bas% 0.6 % 0.0-1.1 31 Baso # 0.06 K/uL 0.0-0.1 Eo% 3.8 % 0.0-6.6 Eos # 0.37 K/uL 0.0-0.5 Hematocrit 40.9 % 38.0-48.0 Hemoglobin 14.2 gm/dL 12.8-17.0 Lymph # 1.70 K/uL 1.0-4.0 Lymph % 17.2 % Low 20.0-42.0 Mean Cell Volume 92.3 fl 80.0-96.0 Mean Corpuscular HGB 32.1 pg 27.0-33.0 Mean Corpuscular HGB Conc 34.7 g/dL 31.7-36.0 Mean Platelet Volume 10.2 fL 6.6-10.6 [place] # 0.98 K/uL High 0.0-0.8 [place] % 9.9 % 0.0-10.0 Neut# 6.75 K/uL 1.8-7.0 Neut% 68.5 % 33.0-73.0 Platelet Count 252 K/uL 150-400 Red Blood Count 4.43 M/uL 4.20-5.80 Red Cell Distri Width %CV 12.8 % 11.6-15.8 Red Cell Distri Width SD 42.0 fl 36-51 White Blood Count 9.9 K/uL 3.4-10.5 CBC W/ Diff & PLT 02/06/2017 N2N/CCD Import Basophils,% 0 % 0-1 32 Basophils,Absolute 40 cells/uL 0-200 Eosinophils,% 7 % High 0-4 Eosinophils,Absolute 560 cells/uL High 15-500 Hematocrit 39.4 % 38.5-50.0 Hemoglobin 13.2 g/dL 13.2-17.1 Lymphocytes,Absolute 1790 cells/uL 850-3900 MCH 31.3 pg 27.0-33.0 MCHC 33.5 g/dL 32.0-36.0 MCV 93.6 FL 80.0-100.0 MPV 8.3 FL 7.5-12.5 Monocytes,% 10 % 4-12 Monocytes,Absolute 750 cells/uL 200-950 Neutrophils,Absolute 4650 cells/uL 9164-9687 Platelet Count 249 thous/uL 140-400 RBC 4.21 mill/uL 4.20-5.80 RDW 13.6 % 11.0-15.0 Total Lymphocytes,% 23 % 12-47 Total Neutrophils,% 60 % 40-75 WBC 7.8 thous/uL 3.8-10.8 Comp Metabolic Panel 02/06/2017 N2N/CCD Import A/G Ratio 1.7 1 1.0-2.5 Albumin 4.2 g/dL 3.6-5.1 Alkaline Phosphatase 54 U/L 40-115 Alt 13 U/L 9-46 Ast 13 U/L 10-35 BUN/Creatinine Ratio 18.0 1 6-22 Bilirubin,Total 0.6 mg/dL 0.2-1.2 Calcium 9.2 mg/dL 8.6-10.3 Carbon Dioxide 26 mmol/L 20-31 Chloride 103 mmol/L 98-110 Creatinine 0.89 mg/dL 0.70-1.18 Egfr 95 ML/MIN/1.73M2 > Or=60 Egfr Non-Afr. [place] 82 ML/MIN/1.73M2 > Or=60 Globulin,Calculated 2.4 g/dL 1.9-3.7 Glucose 165 mg/dL High 65-99 Potassium 4.2 mmol/L 3.5-5.3 Protein,Total 6.6 g/dL 6.1-8.1 33 Sodium 136 mmol/L 135-146 Urea Nitrogen (BUN) 16 mg/dL 7-25 34 Laboratory test 12/22/2016 N2N/CCD Import Hemoglobin A1c 7.5 % High 0- 5.6 35 finding Basic Metabolic 12/22/2016 N2N/CCD Import BUN/Creatinine 14.1 1 6-22 Panel Ratio Calcium 9.6 mg/dL 8.6-10.3 Carbon Dioxide 26 mmol/L 20-31 Chloride 105 mmol/L 98-110 Creatinine 1.00 mg/dL 0.70-1.18 Egfr 83 ML/MIN/1.73M2 > Or=60 Egfr Non-Afr. Cong[place] 72 ML/MIN/1.73M2 > Or=60 Glucose 166 mg/dL High 65-99 Potassium 4.5 mmol/L 3.5-5.3 36 Sodium 139 mmol/L 135-146 37 Urea Nitrogen 14 mg/dL 7-25 Laboratory test 11/04/2015 [facility] Troponin-I < 0.015 N 38, [address] ng/[place] [address] [phone] Laboratory test 11/04/2015 [facility] Troponin-I < 0.015 N [address] ng/[place] [address] [phone] CBS W/Automated 11/03/2015 [facility] White Blood 10.6 K/uL High 3.4- Diff [address] Count 10.[address] [place] [address] [phone] Red Blood Count 4.36 M/uL N 4.20-5.80 Hemoglobin 13.8 gm/dL N 12.8-17.0 Hematocrit 40.1 % N 38.0-48.0 Mean Cell Volume 92.0 fl N 80.0-96.0 Mean Corpuscular HGB 31.7 pg N 27.0-33.0 Mean Corpuscular HGB Conc 34.4 g/dL N 31.7-36.0 Platelet Count 255 K/uL N 150-400 Red Cell Distri Width SD 41.9 fl N 36-51 Red Cell Distri Width %CV 12.8 % N 11.6-15.8 Mean Platelet Volume 9.9 fL N 6.6-10.6 41 Neut% 69.6 % N 33.0-73.0 Lymph % 17.6 % N 17.0-56.0 [place] % 9.7 % N 0.0-10.0 Eo% 2.7 % N 0.0-5.0 Bas% 0.4 % N 0.1-1.0 Neut# 7.36 K/uL High 1.8-7.0 Lymph # 1.86 K/uL N 1.8-7.0 [place] # 1.02 K/uL High 0.0-0.8 Eos # 0.28 K/uL N 0.0-0.5 Baso # 0.04 K/uL Low 0.1-0.2 Slide Review 11/03/2015 [facility] Slide Review DIFF ORDERED N [address] [place], [place] [id number] [phone] Differential-WBC 11/03/2015 [facility] Total Cells 100 #CELLS N Confirm [address] [place] [employer] [place] [id number] [phone] Neutrophils% 71 % N 33-73 Lymph% 21 % N 17-56 Monocyte% 6 % N 0-10 Eosinophil% 2 % N 0-5 Platelet Estimate NORMAL N Anisocytosis 0-1+ N Differential Comment FEW LRG PLTS SEE <SEE NOTE> N 42 Comprehensive Metabolic 11/03/2015 [facility] Glucose 163 mg/dL High 74-106 Panel [address] [place] [address] [phone] BUN 13 mg/dL N 7-18 Creatinine 0.9 mg/dL N 0.6-1.3 Glom Filtration Rate, Estimate >60 mL/min N >60 If >60 mL/min N >60 43 BUN/Creat 14.4 ratio N Sodium 138 mmol/L N 136-145 Potassium 3.8 mmol/L N 3.5-5.1 Chloride 105 mmol/L N 98-107 Carbon Dioxide 24 mmol/L N 21-32 Anion Gap 9 mEq/L N 8-16 Calcium 9.1 mg/dL N 8.5-10.1 Total Protein 6.9 g/dL N 6.4-8.2 Albumin 3.7 g/dL N 3.4-5.0 Globulin 3.2 g/dL N 1.9-4.3 Alb/Glob 1.2 ratio N Bilirubin,Total 0.6 mg/dL N 0.2-1.0 Sgot/Ast 12 U/L Low 15-37 44 SGPT/Alt 36 U/L N 12-78 Alkaline Phosphatase 57 U/L N 45-117 Is Patient Fasting? Unknown Troponin-I 11/03/2015 [facility] Troponin-I < 0.015 ng/mL N 45 [address] [place] [address] [phone] Is Patient Fasting? Unknown Basic Metabolic Panel 10/26/2015 [facility] Glucose 155 mg/dL High 74-106 [address] [place] [address] [phone] BUN 12 mg/dL 7-18 Creatinine 0.9 mg/dL 0.6-1.3 Glom Filtration Rate, Estimate >60 mL/min >60 If >60 mL/min >60 46 BUN/Creat 13.3 ratio Sodium 140 mmol/L 136-145 Potassium 4.0 mmol/L 3.5-5.1 Chloride 108 mmol/L High 98-107 Carbon Dioxide 25 mmol/L 21-32 Anion Gap 7 mEq/L Low 8-16 Calcium 8.9 mg/dL 8.5-10.1 CBC W/Automated Diff 10/26/2015 [facility] White Blood 8.1 K/uL 3.4-10.[address] [place] [address] [phone] Red Blood Count 4.15 M/uL Low 4.20-5.80 Hemoglobin 12.8 gm/dL 12.8-17.0 Hematocrit 38.5 % 38.0-48.0 Mean Cell Volume 92.8 fl 80.0-96.0 Mean Corpuscular HGB 30.8 pg 27.0-33.0 Mean Corpuscular HGB Conc 33.2 g/dL 31.7-36.0 Platelet Count 232 K/uL 150-400 Red Cell Distri Width SD 41.9 fl 36-51 Red Cell Distri Width %CV 12.7 % 11.6-15.8 Mean Platelet Volume 10.3 fL 6.6-10.6 Neut% 56.5 % 33.0-73.0 Lymph % 25.0 % 17.0-56.0 [place] % 12.1 % High 0.0-10.0 Eo% 5.9 % High 0.0-5.0 Bas% 0.5 % 0.1-1.0 Neut# 4.58 K/uL 1.8-7.0 Lymph # 2.03 K/uL 1.8-7.0 [place] # 0.98 K/uL High 0.0-0.8 Eos # 0.48 K/uL 0.0-0.5 Baso # 0.04 K/uL Low 0.1-0.2 Laboratory test finding 10/25/2015 [facility] Magnesium 1.9 mg/dL 1.8-2.[address] [place] [address] [phone] CK 82 U/L 39-308 Troponin-I < 0.015 ng/mL 47 Comprehensive Metabolic 10/25/2015 [facility] Glucose 199 mg/dL High 74-[address] [place] [address] [phone] BUN 11 mg/dL 7-18 Creatinine 1.1 mg/dL 0.6-1.3 Glom Filtration Rate, Estimate >60 mL/min >60 If >60 mL/min >60 48 BUN/Creat 10.0 ratio Sodium 139 mmol/L 136-145 Potassium 3.8 mmol/L 3.5-5.1 Chloride 106 mmol/L 98-107 Carbon Dioxide 21 mmol/L 21-32 Anion Gap 12 mEq/L 8-16 Calcium 9.2 mg/dL 8.5-10.1 Total Protein 6.8 g/dL 6.4-8.2 Albumin 3.7 g/dL 3.4-5.0 Globulin 3.1 g/dL 1.9-4.3 Alb/Glob 1.2 ratio Bilirubin,Total 0.7 mg/dL 0.2-1.0 Sgot/Ast 16 U/L 15-37 SGPT/Alt 25 U/L 12-78 Alkaline Phosphatase 55 U/L 45-117 CBC W/Automated Diff 10/25/2015 [facility] White Blood 8.2 K/uL 3.4-10.[address] [place] [address] [phone] Red Blood Count 4.37 M/uL 4.20-5.80 Hemoglobin 13.7 gm/dL 12.8-17.0 Hematocrit 39.9 % 38.0-48.0 Mean Cell Volume 91.3 fl 80.0-96.0 Mean Corpuscular HGB 31.4 pg 27.0-33.0 Mean Corpuscular HGB Conc 34.3 g/dL 31.7-36.0 Platelet Count 227 K/uL 150-400 Red Cell Distri Width SD 40.4 fl 36-51 Red Cell Distri Width %CV 12.5 % 11.6-15.8 Mean Platelet Volume 10.2 fL 6.6-10.6 Neut% 66.0 % 33.0-73.0 Lymph % 22.0 % 17.0-56.0 Dorado % 8.7 % 0.0-10.0 Eo% 2.9 % 0.0-5.0 Bas% 0.4 % 0.1-1.0 Neut# 5.42 K/uL 1.8-7.0 Lymph # 1.80 K/uL 1.8-7.0 Dorado # 0.71 K/uL 0.0-0.8 Eos # 0.24 K/uL 0.0-0.5 Baso # 0.03 K/uL Low 0.1-0.2 Urine Screen 10/25/2015 [facility] Ua RFX Micro + See Note 49 [address] [place], [place] [id number] [phone] Laboratory test 10/25/2015 [facility] Aot Request Test(s) added 50 finding [address] [place] [address] [phone] 1 TACHYCARDIA, WEAKNESS 2 Note: Persistent reduction for 3 months or more in an eGFR <60 mL/min/1.73 m2 defines CKD. Patients with eGFR values >/=60 mL/min/1.73 m2 may also have CKD if evidence of persistent proteinuria is present. The original MDRD equation for estimated GFR is not valid for patients less than 18 years of age. Additional information may be found at [email or web address]. 3 TACHYCARDIA,WEAKNESS 4 Note: Persistent reduction for 3 months or more in an eGFR <60 mL/min/1.73 m2 defines CKD. Patients with eGFR values >/=60 mL/min/1.73 m2 may also have CKD if evidence of persistent proteinuria is present. The original MDRD equation for estimated GFR is not valid for patients less than 18 years of age. Additional information may be found at www.kdoqi.org. 5 Tests: mag, tsh,t3,t4 Instructions: 6 Note: Persistent reduction for 3 months or more in an eGFR <60 mL/min/1.73 m2 defines CKD. Patients with eGFR values >/=60 mL/min/1.73 m2 may also have CKD if evidence of persistent proteinuria is present. The original MDRD equation for estimated GFR is not valid for patients less than 18 years of age. Additional information may be found at www.[email or web address]. 7 Elevated levels of HbA1c suggest the need for more aggressive treatment of glycemia. The [place] [employer] recommends that a primary goal of therapy should be a HbA1c of <7% and that physicians should re-evaluate the treatment regimen in patients with HbA1c values consistently >8%. 8 FASTING 9 For someone without known diabetes, a hemoglobin A1C value of 6.5% or greater indicates that they may have diabetes and this should be confirmed with a follow-up test. For someone with known diabetes, a value <7% indicates that their diabetes is well controlled and a value greater than or equal to 7% indicates suboptimal control. A1C targets should be individualized based on duration of diabetes, age, comorbid conditions, and other considerations. Currently, no consensus exists for use of hemoglobin A1C for diagnosis of diabetes for children. FOR DIAGNOSTIC PURPOSES: A1C VALUE(% OF TOTAL HEMOGLOBIN) INTERPRETATION < 5.7 CONSISTENT WITH THE ABSENCE OF DIABETES 5.7 - 6.4 CONSISTENT WITH INCREASED RISK OF DIABETES > OR=6.5 CONSISTENT WITH DIABETES FOR MONITORING PURPOSES (ADA GUIDELINNES): A1C VALUE(% OF TOTAL HEMOGLOBIN) INTERPRETATION < 6.5 ACHIEVES STRINGENT GLYCEMIC GOAL < 7.0 ACHIEVES GENERAL GLYCEMIC GOAL(NON- ADULTS) < 8.0 ACHIEVES LESS STRINGENT GLYCEMIC GOAL 10 LDL-C is now calculated using the Kel-Guzman calculation, which is a validated novel method providing better accuracy than the Friedewald equation in the estimation of LDL-C. Kel SS et al.ELIZABETH.2013;31019):1204-0648 Desirable range <100 mg/dL for primary prevention; <70 mg/dL for patients with CHD or diabetic patients with >or=2 CHD risk factors. For additional information, please refer to http://education.ClickDelivery/faq/MQO250(This link is being provided for informational/educational purposes only.) 11 The upper reference limit for Creatinine is approximately 13% higher for people identified as -Congolese. 12 For patients with diabetes plus 1 major ASCVD risk factor, treating to a non-HDL-C goal of <100 mg/dL (LDL-C of <70 mg/ dL) is considered a therapeutic option. 13 LDL-C is now calculated using the Kel-Guzman calculation, which is a validated novel method providing better accuracy than the Friedewald equation in the estimation of LDL-C. Kel SS et al.ELIZABETH.2013;310(19):9208-9056 Desirable range <100 mg/dL for primary prevention; <70 mg/dL for patients with CHD or diabetic patients with >or=2 CHD risk factors. For additional information, please refer to http://education.CARDFREE.JobScout/faq/UDI392(This link is being provided for informational/educational purposes only.) 14 For patients with diabetes plus 1 major ASCVD risk factor, treating to a non-HDL-C goal of <100 mg/dL (LDL-C of <70 mg/ dL) is considered a therapeutic option. 15 GLUCOSE REFERENCE RANGE BASED ON FASTING SPECIMEN. 16 For someone without known diabetes, a hemoglobin A1C value of 6.5% or greater indicates that they may have diabetes and this should be confirmed with a follow-up test. For someone with known diabetes, a value <7% indicates that their diabetes is well controlled and a value greater than or equal to 7% indicates suboptimal control. A1C targets should be individualized based on duration of diabetes, age, comorbid conditions, and other considerations. Currently, no consensus exists for use of hemoglobin A1C for diagnosis of diabetes for children. FOR DIAGNOSTIC PURPOSES: A1C VALUE(% OF TOTAL HEMOGLOBIN) INTERPRETATION < 5.7 CONSISTENT WITH THE ABSENCE OF DIABETES 5.7 - 6.4 CONSISTENT WITH INCREASED RISK OF DIABETES > OR=6.5 CONSISTENT WITH DIABETES FOR MONITORING PURPOSES (ADA GUIDELINNES): A1C VALUE(% OF TOTAL HEMOGLOBIN) INTERPRETATION < 6.5 ACHIEVES STRINGENT GLYCEMIC GOAL < 7.0 ACHIEVES GENERAL GLYCEMIC GOAL(NON- ADULTS) < 8.0 ACHIEVES LESS STRINGENT GLYCEMIC GOAL 17 For someone without known diabetes, a hemoglobin A1C value of 6.5% or greater indicates that they may have diabetes and this should be confirmed with a follow-up test. For someone with known diabetes, a value <7% indicates that their diabetes is well controlled and a value greater than or equal to 7% indicates suboptimal control. A1C targets should be individualized based on duration of diabetes, age, comorbid conditions, and other considerations. Currently, no consensus exists for use of hemoglobin A1C for diagnosis of diabetes for children. FOR DIAGNOSTIC PURPOSES: A1C VALUE(% OF TOTAL HEMOGLOBIN) INTERPRETATION < 5.7 CONSISTENT WITH THE ABSENCE OF DIABETES 5.7 - 6.4 CONSISTENT WITH INCREASED RISK OF DIABETES > OR=6.5 CONSISTENT WITH DIABETES FOR MONITORING PURPOSES (ADA GUIDELINNES): A1C VALUE(% OF TOTAL HEMOGLOBIN) INTERPRETATION < 6.5 ACHIEVES STRINGENT GLYCEMIC GOAL < 7.0 ACHIEVES GENERAL GLYCEMIC GOAL(NON- ADULTS) < 8.0 ACHIEVES LESS STRINGENT GLYCEMIC GOAL 18 The upper reference limit for Creatinine is approximately 13% higher for people identified as -Congolese. 19 GLUCOSE REFERENCE RANGE BASED ON FASTING SPECIMEN. 20 LDL-C is now calculated using the Sheila calculation, which is a validated novel method providing better accuracy than the Friedewald equation in the estimation of LDL-C. Kel SINGLETON et al.ELIZABETH.2013;310(19):3226-1907 Desirable range <100 mg/dL for primary prevention; <70 mg/dL for patients with CHD or diabetic patients with >or=2 CHD risk factors. For additional information, please refer to http://education.ClickDelivery/faq/MNN220(This link is being provided for informational/educational purposes only.) 21 For patients with diabetes plus 1 major ASCVD risk factor, treating to a non-HDL-C goal of <100 mg/dL (LDL-C of <70 mg/ dL) is considered a therapeutic option. 22 The total PSA value from this assay system is standardized against the WHO standard. The test result will be approximately 20% lower when compared to the equimolar-standardized total PSA (Danilo Leblanc). Comparison of serial PSA results should be interpreted with this fact in mind. This test was performed using the Siemens chemiluminescent method. Values obtained from different assay methods be used interchangeably. PSA levels, regardless of value, should not be interpreted as absolute evidence of the presence or absence of disease. 23 Men with clinically significant hypogonadal symptoms and testosterone values repeatedly in the range of the 200-300 ng/dL or less, may benefit from testosterone treatment after adequate risk and benefits counseling. For more information on this test, go to http://education.EvolveMol/faq/ TotalTestosteroneLCMSMS This test was developed and its analytical performance characteristics have been determined by [employer] [place], [place]. It has not been cleared or approved by the U.S. Food and Drug Administration. This assay has been validated pursuant to the CLIA regulations and is used for clinical purposes. 24 THEODORE IFA is a first line screen for detecting the presence of up to approximately 150 autoantibodies in various autoimmune diseases. A negative THEODORE IFA result suggests THEODORE- associated autoimmune diseases are not present at this time. Visit Physician FAQs for interpretation of all antibodies in the [place], prevalence, and association with diseases at http://education.ClickDelivery/faq/BPO731 25 25-OHD3 indicates both endogenous production and supplementation. 25-OHD2 is an indicator of exogenous sources such as diet or supplementation. Therapy is based on measurement of Total 25-OHD, with levels <20 ng/mL indicative of Vitamin D deficiency while levels between 20 ng/mL and 30 ng/mL suggest insufficiency. Optimal levels are > or=30 ng/mL. For more information on this test, go to http://education.[employer] Software.JobScout/faq/WZK640 26 NORMAL >5.4 NG/ML BORDERLINE 3.4-5.4 NG/ML LOW <3.4 NG/ML 27 The upper reference limit for Creatinine is approximately 13% higher for people identified as -Congolese. 28 GLUCOSE REFERENCE RANGE BASED ON FASTING SPECIMEN. 29 For someone without known diabetes, a hemoglobin A1C value of 6.5% or greater indicates that they may have diabetes and this should be confirmed with a follow-up test. For someone with known diabetes, a value <7% indicates that their diabetes is well controlled and a value greater than or equal to 7% indicates suboptimal control. A1C targets should be individualized based on duration of diabetes, age, comorbid conditions, and other considerations. Currently, no consensus exists for use of hemoglobin A1C for diagnosis of diabetes for children. FOR DIAGNOSTIC PURPOSES: A1C VALUE(% OF TOTAL HEMOGLOBIN) INTERPRETATION < 5.7 CONSISTENT WITH THE ABSENCE OF DIABETES 5.7 - 6.4 CONSISTENT WITH INCREASED RISK OF DIABETES > OR=6.5 CONSISTENT WITH DIABETES FOR MONITORING PURPOSES (ADA GUIDELINNES): A1C VALUE(% OF TOTAL HEMOGLOBIN) INTERPRETATION < 6.5 ACHIEVES STRINGENT GLYCEMIC GOAL < 7.0 ACHIEVES GENERAL GLYCEMIC GOAL(NON- ADULTS) < 8.0 ACHIEVES LESS STRINGENT GLYCEMIC GOAL 30 Relative blood cell counts (%) should be compared with absolute cell counts (cells/mcL). Relative counts may not be clinically meaningful if the absolute count of one or more cell type is decreased. Reference ranges for relative cell counts derived from: A Manual of Laboratory and Diagnostics Tests, 9th Ed, Stephen Keo & Navarro, 2015. Pediatric Reference Intervals, 7th Ed, [facility] [employer], 2011. 31 LOWER R ABD/GROIN PAIN, NOT URINATING 32 FASTING 33 The upper reference limit for Creatinine is approximately 13% higher for people identified as -Congolese. 34 GLUCOSE REFERENCE RANGE BASED ON FASTING SPECIMEN. 35 For someone without known diabetes, a hemoglobin A1C value of 6.5% or greater indicates that they may have diabetes and this should be confirmed with a follow-up test. For someone with known diabetes, a value <7% indicates that their diabetes is well controlled and a value greater than or equal to 7% indicates suboptimal control. A1C targets should be individualized based on duration of diabetes, age, comorbid conditions, and other considerations. Currently, no consensus exists for use of hemoglobin A1C for diagnosis of diabetes for children. FOR DIAGNOSTIC PURPOSES: A1C VALUE(% OF TOTAL HEMOGLOBIN) INTERPRETATION < 5.7 CONSISTENT WITH THE ABSENCE OF DIABETES 5.7 - 6.4 CONSISTENT WITH INCREASED RISK OF DIABETES > OR=6.5 CONSISTENT WITH DIABETES FOR MONITORING PURPOSES (ADA GUIDELINNES): A1C VALUE(% OF TOTAL HEMOGLOBIN) INTERPRETATION < 6.5 ACHIEVES STRINGENT GLYCEMIC GOAL < 7.0 ACHIEVES GENERAL GLYCEMIC GOAL(NON- ADULTS) < 8.0 ACHIEVES LESS STRINGENT GLYCEMIC GOAL 36 The upper reference limit for Creatinine is approximately 13% higher for people identified as -Congolese. 37 GLUCOSE REFERENCE RANGE BASED ON FASTING SPECIMEN. 38 VERTIGO 39 0.0 - 0.045 ng/mL: Normal 0.046 - 0.5 ng/mL: Suggestive 0.6 - 1.5 ng/mL: Consistent 40 0.0 - 0.045 ng/mL: Normal 0.046 - 0.5 ng/mL: Suggestive 0.6 - 1.5 ng/mL: Consistent 41 11/03/153: NEUT% previously reported as: 69.6 % Amended result called to: [] 11/03/15 at 221211/03/153: LYMPH % previously reported as: 17.6 % Amended result called to: [] - 11/03/15 at 221211/03/15 2213: MONO % previously reported as: 9.7 % Amended result called to: [] 11/03/15 at 221211/03/153: EO% previously reported as: 2.7 % Amended result called to: [] 11/03/15 at 221211/03/153: BAS% previously reported as: 0.4 % Amended result called to: [] - 11/03/15 at 2212 42 FEW LRG PLTS SEEN 43 Note: Persistent reduction for 3 months or more in an eGFR <60 mL/min/1.73 m2 defines CKD. Patients with eGFR values >/=60 mL/min/1.73 m2 may also have CKD if evidence of persistent proteinuria is present. The original MDRD equation for estimated GFR is not valid for patients less than 18 years of age. Additional information may be found at www.kdoqi.org. 44 Values below the stated reference ranges of AST and ALT can be seen in normal populations. Clinical correlation is suggested. 45 0.0 - 0.045 ng/mL: Normal 0.046 - 0.5 ng/mL: Suggestive 0.6 - 1.5 ng/mL: Consistent 46 Note: Persistent reduction for 3 months or more in an eGFR <60 mL/min/1.73 m2 defines CKD. Patients with eGFR values >/=60 mL/min/1.73 m2 may also have CKD if evidence of persistent proteinuria is present. The original MDRD equation for estimated GFR is not valid for patients less than 18 years of age. Additional information may be found at www.kdoqi.org. 47 0.0 - 0.045 ng/mL: Normal 0.046 - 0.5 ng/mL: Suggestive 0.6 - 1.5 ng/mL: Consistent 48 Note: Persistent reduction for 3 months or more in an eGFR <60 mL/min/1.73 m2 defines CKD. Patients with eGFR values >/=60 mL/min/1.73 m2 may also have CKD if evidence of persistent proteinuria is present. The original MDRD equation for estimated GFR is not valid for patients less than 18 years of age. Additional information may be found at [email or web address]. 49 PT DISCHARGED, NO SPECIMEN RECEIVED 50 Tests: magnesium Instructions: Procedures Date Code Description Status 09/03/2018 87475 Pare Hyperkeratotic Lesion, 2-4 Completed 08/16/2018 48134 EKG-Tracing And Report Completed 08/07/2018 63273 Echocardiogram Complete Completed 08/06/2018 26370 EKG Interpretation And Report Only Completed 08/05/2018 14830 EKG Interpretation And Report Only Completed 08/05/2018 60326 EKG Interpretation And Report Only Completed 07/31/2018 74526 Measurement Post Voiding Residual Urine By Completed Ultrasound,Non-Imaging 05/23/2018 42421 Pare Hyperkeratotic Lesion, Single Completed 04/23/2018 33658 EKG-Tracing And Report Completed 03/26/2018 94602 Measurement Post Voiding Residual Urine By Completed Ultrasound,Non-Imaging 09/21/2017 41509 Measurement Post Voiding Residual Urine By Completed Ultrasound,Non-Imaging 09/21/2017 43384 complex uroflowmetry electronic Completed 05/11/2017 15631 Measurement Post Voiding Residual Urine By Completed Ultrasound,Non-Imaging 03/15/2017 18690 EKG-Tracing And Report Completed 03/09/2017 88332 Irrigation Of Bladder Completed 11/04/2015 46599 Echocardiogram Complete Completed 12/09/2013 51744 Echocardiogram Complete Completed Encounters Type Date Location Provider Dx Diagnosis Office Visit 09/06/2018 Cardiology Office Steph Brown I47.1 Supraventricular 11:20a B., PA tachycardia I10 Essential (primary) hypertension R06.02 Shortness of breath Office Visit 09/03/2018 3:25p Podiatry Office [place] I70.203 [facility] [place] RADHA Gorman arteries of extremities, bilateral legs E11.9 Type 2 diabetes mellitus without complications L84 Corns and callosities L85.8 Other specified epidermal thickening M20.12 Hallux valgus (acquired), left foot M20.11 Hallux valgus (acquired), right foot Office Visit 08/16/2018 Cardiology Stephanie, I47.1 Supraventricular 11:30a Office Steph Salazar, tachycardia PA I10 Essential (primary) hypertension R60.0 Localized edema R06.02 Shortness of breath Office Visit 07/31/2018 3:15p Urology Marco, N40.1 Benign prostatic Dhara Foy hyperplasia with lower urinary tract symp Office Visit 07/25/2018 1:30p Cardiology Office Radha Pike MD R29.6 Repeated falls I10 Essential (primary) hypertension R60.0 Localized edema Office Visit 05/23/2018 3:05p Podiatry Office Sherif Dove, 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, init E11.9 Type 2 diabetes mellitus without complications L84 Corns and callosities M20.12 Hallux valgus (acquired), left foot M20.11 Hallux valgus (acquired), right foot Office Visit 04/23/2018 1:00p Cardiology Office Stephanie R60.0 Localized edema AVANI Sawyer I10 Essential (primary) hypertension G45.9 Transient cerebral ischemic attack, unspecified E78.2 Mixed hyperlipidemia Office Visit 03/26/2018 1:45p Urology Marco N40.1 Benign prostatic Dhara Foy hyperplasia with lower urinary tract symp Office Visit 10/10/2017 11:45a Cardiology Office Radha Pike, I10 Essential MD (primary) hypertension G45.9 Transient cerebral ischemic attack, unspecified E78.2 Mixed hyperlipidemia Office Visit 09/21/2017 10:15a Urology Marco N40.1 Benign prostatic Dhara Foy hyperplasia with lower urinary tract symp Office Visit 05/11/2017 8:15a Urology Edy Lara0.1 Benign prostatic Dhara Foy hyperplasia with lower urinary tract symp Office Visit 03/15/2017 10:30a Cardiology Office Radha Pike MD G45.9 Transient cerebral ischemic attack, unspecified I10 Essential (primary) hypertension E78.2 Mixed hyperlipidemia Office Visit 03/09/2017 10:45a Urology Law Lara, N40.1 Benign prostatic M.D. hyperplasia with lower urinary tract symp R33.8 Other retention of urine Office Visit 02/27/2017 10:45a Urology Law Lara, R33.8 Other retention of M.D. urine N40.1 Benign prostatic hyperplasia with lower urinary tract symp Z12.5 Encounter for screening for malignant neoplasm of prostate Plan of Treatment Future Appointment(s):11/07/2018 2:05 pm - Sherif Dove DPM at Podiatry Quwxmd9101/31/2019 11:30 am - Law Lara M.D. at [facility]77/20/2019 1:15 pm - Radha Pike MD at Cardiology [id number]/06/2018 - Steph Brown, PAI47.1 Supraventricular tachycardiaNew Medication:Propranolol HCL 20 mg - 1 tab by mouth as needed for palpitations (do not take more than twice in a 24 hour period)Comments:We discussed option of implantable loop recorder for care home monitoring and to help guide need forfurther therapy. He is not interested in this. Will provide him with [id number] propranolol to take PRN for palpitations/tachycardia.I10 Essential (primary) hypertensionComments: Monitor.R06.02 Shortness of breathComments:No further cardiac testing indicated.AllFollow up:6 months
[2018-10-03 18:38] LABS: ABS Basophils 0.1 10^3/ul (0-0.2); ABS Eosinophils 0.5 10^3/ul (0-0.6); ABS Lymphocytes 2.2 10^3/ul (1.0-4.8); ABS Neutrophils 5.5 10^3/ul (1.5-7.7); Eosinophil % 5.2 %; Hematocrit 39 % (42-52); Hemoglobin 13.2 g/dL (14.0-18.0); Lymphocyte % 23.8 %; Mean Corpuscular HGB Conc 34 g/dL (31-36); Mean Corpuscular Hemoglobin 31 pg (27-31); Mean Corpuscular Volume 92 fL (80-94); Nucleated Red Blood Cells % 0.1; Platelet Count 248 10^3/uL (150-450); Red Blood Count 4.29 10^6 /uL (4.18-5.48); Red Cell Distribution Width 13 % (10-15); White Blood Count 9.4 10^3/uL (3.5-10.8)
[2018-10-03 19:05] LABS: Albumin/Globulin Ratio 1.7 (1-3); BUN/Creatinine Ratio 13.3 (8-20); C Reactive Protein 1.52 mg/L (<8.01); Calcium 9.7 mg/dL (8.6-10.3); EGFR African American 89.3 (>60); EGFR Non-African American 73.8 (>60); Globulin 2.4 g/dL (2-4); Potassium 3.5 mmol/L (3.5-5.0); Total Bilirubin 0.6 mg/dL (0.2-1.0); Total Protein 6.4 g/dL (6.4-8.9)
--- NOTE | 2018-10-03 19:22 | ED ---
Lower Extremity - HPI Summary HPI Summary: 77-year-old male presents with left knee pain today. He states that he also has been having weakness in the leg. He has a history of this. It not change from his normal weakness. Evaluated by neurology for this weakness. He denies any difficulties. No headache. No numbness or tingling. He states that he did fall yesterday. He has pain on lateral aspect of left knee. no redness. No fevers. Daughter states has had a workup for this pain multiple times in the past. is seeing neurology for the weakness in leg. has an apt with ortho tomorrow. - History of Current Complaint Chief Complaint: EDExtremityLower Stated Complaint: LEFT KNEE PAIN PER DAUGHTER Time Seen by Provider: 10/03/18 17:32 Pain Intensity: 1 - Allergies/Home Medications Allergies/Adverse Reactions: Allergies Allergy/AdvReac Type Severity Reaction Status Date / Time pioglitazone [From Actos] AdvReac Intermediate See Comment Verified 07/19/18 10: 57 PMH/Surg Hx/FS Hx/Imm Hx Endocrine/Hematology History: Reports: Hx Diabetes Denies: Hx Systemic Lupus Erythematosus Cardiovascular History: Reports: Hx Hypertension - controlled with medicine Denies: Hx Congestive Heart Failure, Hx Pacemaker/ICD Respiratory History: Reports: Hx Sleep Apnea GI History: Reports: Hx Gastroesophageal Reflux Disease - occassionally prn, Other GI Disorders - had to have esophagus stretched once History: Reports: Other Problems/Disorders - BPH Denies: Hx Dialysis, Hx Renal Disease Musculoskeletal History: Reports: Hx Arthritis Denies: Hx Rheumatoid Arthritis Sensory History: Reports: Hx Contacts or Glasses - reading and driving, Hx Hearing Aid - BILAT Opthamlomology History: Reports: Hx Contacts or Glasses - reading and driving Psychiatric History: Denies: Hx Panic Disorder - Cancer History Cancer Type, 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 Hx Chemotherapy: No - Surgical History Surgery Procedure, Year, and Place: lower + upper eye lids x2 (10 yrs ago and 2 yrs ago)- no implant (turned lower lid outward instead of tucking inward), cataract BILATERAL, esophagus-stretch x 2; RIGHT knee 04/2018 meniscus; Hx Anesthesia Reactions: No Infectious Disease History: No Infectious Disease History: Denies: Traveled Outside the [place] in Last 30 Days - Family History Known Family History: Positive: Hypertension - Social History Alcohol Use: None Substance Use Type: Reports: None Smoking Status (MU): Former Smoker Review of Systems Negative: Fever Negative: Chest Pain Negative: Shortness Of Breath Positive: Myalgia - left knee pain All Other Systems Reviewed And Are Negative: Yes Physical Exam Triage Information Reviewed: Yes Vital Signs On Initial Exam: Initial Vitals Temp Pulse Resp BP Pulse Ox 97.0 F 52 18 159/68 100 10/03/18 15:24 10/03/18 15:24 10/03/18 15:24 10/03/18 15:24 10/03/18 15:24 Vital Signs Reviewed: Yes Appearance: Positive: Well-Appearing Skin: Positive: Warm, Dry Head/Face: Positive: Normal Head/Face Inspection Eyes: Positive: Normal, Conjunctiva Clear ENT: Positive: Pharynx normal Respiratory/Lung Sounds: Positive: Clear to Auscultation, Breath Sounds Present Cardiovascular: Positive: Normal, RRR Abdomen Description: Positive: Nontender, Soft Bowel Sounds: Positive: Present Musculoskeletal: Positive: Limited @ - passive ROM intake without pain, Other - mild edema over left knee, good pulses, no calf pain Neurological: Positive: Sensory/Motor Intact, Alert, Oriented to Person Place, Time, CN Intact II-III, Normal Gait Psychiatric: Positive: Normal Diagnostics - Vital Signs Vital Signs Temp Pulse Resp BP Pulse Ox 10/03/18 15:24 97.0 F 52 18 159/68 100 - Laboratory Lab Results: Lab Results 10/03/18 10/03/18 Range/Units 18:27 18:27 WBC 9.4 (3.5-10.8) 10^3/uL RBC 4.29 (4.18-5.48) 10^6 /uL Hgb 13.2 L (14.0-18.0) g/dL Hct 39 L (42-52) % MCV 92 (80-94) fL MCH 31 (27-31) pg MCHC 34 (31-36) g/dL RDW 13 (10-15) % Plt Count 248 (150-450) 10^3/uL MPV 8.0 (7.4-10.4) fL Neut % (Auto) 59.1 % Lymph % (Auto) 23.8 % [place] % (Auto) 10.8 % Eos % (Auto) 5.2 % Baso % (Auto) 1.1 % Absolute Neuts (auto) 5.5 (1.5-7.7) 10^3/ul Absolute Lymphs (auto) 2.2 (1.0-4.8) 10^3/ul Absolute Monos (auto) 1.0 H (0-0.8) 10^3/ul Absolute Eos (auto) 0.5 (0-0.6) 10^3/ul Absolute Basos (auto) 0.1 (0-0.2) 10^3/ul Absolute Nucleated RBC 0.0 10^3/ul Nucleated RBC % 0.1 Sodium 139 (135-145) mmol/L Potassium 3.5 (3.5-5.0) mmol/L Chloride 107 (101-111) mmol/L Carbon Dioxide 23 (22-32) mmol/L Anion Gap 9 (2-11) mmol/L BUN 13 (6-24) mg/dL Creatinine 0.98 (0.67-1.17) mg/dL Est GFR ( Amer) 89.3 (>60) Est GFR (Non-Af Amer) 73.8 (>60) BUN/Creatinine Ratio 13.3 (8-20) Glucose 132 H (70-100) mg/dL Calcium 9.7 (8.6-10.3) mg/dL Total Bilirubin 0.60 (0.2-1.0) mg/dL AST 16 (13-39) U/L ALT 20 (7-52) U/L Alkaline Phosphatase 62 (34-104) U/L C-Reactive Protein 1.52 (<8.01) mg/L Total Protein 6.4 (6.4-8.9) g/dL Albumin 4.0 (3.2-5.2) g/dL Globulin 2.4 (2-4) g/dL Albumin/Globulin Ratio 1.7 (1-3) Result Diagrams: 10/03/18 18:27 10/03/18 18:27 Lab Statement: Any lab studies that have been ordered have been reviewed, and results considered in the medical decision making process. - Radiology No standard instances Radiology Interpretation Completed By: Radiologist Summary of Radiographic Findings: IMPRESSION: NO EVIDENCE FOR FRACTURE. - CT brain CT Interpretation Completed By: Radiologist Summary of CT Findings: IMPRESSION: No acute intracranial findings or significant change since prior. Age-related. atrophy and chronic white matter ischemic change. Lower Extremity Course/Dx - Course Course Of Treatment: 77-year-old male presents with left knee pain today. He states that he also has been having weakness in the leg. He has a history of this. It not change from his normal weakness. Evaluated by neurology for this weakness. He denies any difficulties. No headache. No numbness or tingling. He states that he did fall yesterday. He has pain on lateral aspect of left knee. no redness. No fevers. Daughter states has had a workup for this pain multiple times in the past. is seeing neurology for the weakness in leg. has an apt with ortho tomorrow. On exam tenderness over lateral aspect of the left knee. Neurovascularly intact. wbc normal. CRP normal. X-ray no fracture. got CT brain with weakness and CT brain normal. no weakness seen on exam and no other neuro deficit noted. Patient was able to ambulate with a walker in ED. We'll discharge follow-up with orthopedic. Patient understands agrees with plan. - Diagnoses Differential Diagnosis/HQI/PQRI: Positive: Contusion, Fracture (Closed), Sprain Provider Diagnoses: Left knee pain Discharge - Sign-Out/Discharge Documenting (check all that apply): Patient Departure Patient Received Moderate/Deep Sedation with Procedure: No - Discharge Plan Condition: Good Disposition: HOME Patient Education Materials: Knee Pain (ED) Referrals: Estrella Lim MD [Primary Care Provider] - Hipolito Pompa MD [Medical Doctor] - Additional Instructions: take tyenol every 6 hours for pain ice, elevate Return to ED if develop any new or worsening symptoms - Billing Disposition and Condition Condition: GOOD Disposition: Home
[2018-10-03 19:49] VITALS: BP 149/89
== END 2018-10-03 19:48 | disposition home or self-care (01) ==
LOC: ED 15:22
DX: M25.562 Pain in left knee (principal); M62.81 Muscle weakness (generalized); E11.9 Type 2 diabetes mellitus without complications; I10 Essential (primary) hypertension; Z88.8 Allergy status to other drugs, medicaments and biological substances; Z87.891 Personal history of nicotine dependence
CPT/HCPCS: 36415; 70450; 80053; 85025; 86140; 86618; 99282

== ENCOUNTER 2023-03-02 14:25 | Observation (INO) ==
[2023-03-02 15:35] LABS: ABS Basophils 0.1 10^3/uL (0.0-0.1); ABS Lymphocytes 0.4 10^3/uL (1.0-4.8); ABS Monocytes 0.9 10^3/uL (0.0-1.1); ABS Neutrophils 15.4 10^3/uL (1.5-7.6); ABS Nucleated RBC 0.01 10^3/ul; Hematocrit 36.7 % (38-53); Hemoglobin 12.2 g/dL (13.2-16.3); Lymphocyte % 2.5 %; Mean Corpuscular Hgb Conc 33.1 g/dL (31-36); Mean Corpuscular Volume 90.6 fL (80-97); Mean Platelet Volume 7.7 fL (7.5-11.2); Platelet Count 263 10^3/uL (150-450); Red Blood Count 4.05 10^6/uL (4.06-5.63); Red Cell Distribution Width 13.9 % (12-17); White Blood Count 16.8 10^3/uL (3.6-10.2)
[2023-03-02 15:58] LABS: Albumin/Globulin Ratio 1.5 (1-3); Calcium 9.4 mg/dL (8.6-10.3); Creatinine, Serum 1.15 mg/dL (0.67-1.17); Globulin 2.6 g/dL (2-4); Magnesium 1.9 mg/dL (1.9-2.7); Potassium 4.2 mmol/L (3.5-5.0); Total Bilirubin 0.6 mg/dL (0.2-1.0); Total Protein 6.6 g/dL (6.4-8.9); eGFR CKD-EPI 62.8 (>60)
[2023-03-02 17:27] LABS: High Sensitivity Troponin 1 Hr 18 pg/mL (<20)
[2023-03-02] MEDS ORDERED: Iodixanol (CONTRAST) 320 MG/ML 100 ML SDV IV ONE (17:45)
[2023-03-02] MEDS ORDERED: Ondansetron 4 mg VIAL 2 MG/ML 2 ml VIAL IV ONE (17:57)
[2023-03-02] MEDS ORDERED: Morphine 2 MG/ML SYRINGE IV ONE (17:57)
[2023-03-02 20:37] LABS: Urine Appearance Clear; Urine Bacteria Absent (Absent); Urine Bilirubin Negative (Negative); Urine Blood Negative (Negative); Urine Color Yellow; Urine Glucose Negative (Negative); Urine Ketones Negative (Negative); Urine Nitrite Negative (Negative); Urine Protein 1+(30 mg/dL) (Negative); Urine Red Blood Cell 2+(6-10/hpf) (Absent); Urine Squamous Epithelial Cell Present (Absent); Urine Urobilinogen Negative (Negative); Urine White Blood Cell Trace(0-5/hpf) (Absent)
[2023-03-02] MEDS ORDERED: Morphine 4 MG/ML VIAL (1 ml) IV ONE (20:37)
[2023-03-02 20:40] LABS: Urine Specific Gravity > 1.060 (1.002-1.030)
[2023-03-02 22:20] LABS: C Reactive Protein 12.96 mg/L (<8.01)
[2023-03-02] MEDS ORDERED: Lactated Ringers 1000 ml BAG 1,000 ML IV ONE (22:47)
[2023-03-03] MEDS ORDERED: Dextrose 50% Syringe 50 ml 25 GM/50 ML SYRINGE IV PUSH PRN (02:03)
[2023-03-03] MEDS: Enoxaparin 40 MG/0.4 ML SYR SUBCUT SCH ×2 (02:03→21:21)
[2023-03-03] MEDS ORDERED: Polyethylene Glycol 3350 17 GM PACKET PO PRN (05:23)
[2023-03-03 08:08] LABS: ALT 19 U/L (7-52); AST 38 U/L (13-39); Albumin 3.5 g/dL (3.2-5.2); Albumin/Globulin Ratio 1.4 (1-3); Alkaline Phosphatase 59 U/L (35-149); Anion Gap 10 mmol/L (2-16); Blood Urea Nitrogen 19 mg/dL (6-24); CO2 Carbon Dioxide 25 mmol/L (22-32); Calcium 8.8 mg/dL (8.6-10.3); Chloride 103 mmol/L (101-111); Creatinine, Serum 1.14 mg/dL (0.67-1.17); Globulin 2.5 g/dL (2-4); Glucose 77 mg/dL (70-100); Magnesium 1.9 mg/dL (1.9-2.7); Potassium 3.8 mmol/L (3.5-5.0); Sodium 138 mmol/L (135-145); Total Bilirubin 0.6 mg/dL (0.2-1.0); eGFR CKD-EPI 63.4 (>60)
[2023-03-03 08:27] LABS: TSH Ultra Thyroid Stim Horm 0.71 mcIU/mL (0.34-5.60)
[2023-03-03] MEDS ORDERED: Morphine 2 MG/ML SYRINGE IV ONE (08:40)
[2023-03-03] MEDS: CMCS: Alfuzosin ER 10 mg TAB.ER (NF) 10 MG TAB.ER PO SCH (08:48)
[2023-03-03] MEDS ORDERED: Senna TAB 8.6 mg TAB PO PRN (09:04)
[2023-03-03] MEDS ORDERED: Lactated Ringers 1000 ml BAG 1,000 ML IV ONE (09:09)
[2023-03-03 10:08] LABS: ABS Basophils 0.1 10^3/uL (0.0-0.1); ABS Eosinophils 0.2 10^3/uL (0.0-0.5); ABS Lymphocytes 1.4 10^3/uL (1.0-4.8); ABS Monocytes 1.3 10^3/uL (0.0-1.1); ABS Neutrophils 8.4 10^3/uL (1.5-7.6); Eosinophil % 1.7 %; Hematocrit 34.7 % (38-53); Hemoglobin 11.6 g/dL (13.2-16.3); Lymphocyte % 12.3 %; Mean Corpuscular Hemoglobin 30.3 pg (27-33); Mean Corpuscular Hgb Conc 33.5 g/dL (31-36); Mean Corpuscular Volume 90.7 fL (80-97); Mean Platelet Volume 8.3 fL (7.5-11.2); Platelet Count 235 10^3/uL (150-450); Red Blood Count 3.83 10^6/uL (4.06-5.63); White Blood Count 11.3 10^3/uL (3.6-10.2)
[2023-03-03] MEDS ORDERED: Ketorolac 10 mg TAB (NF) PO PRN (13:12)
[2023-03-04 04:25] LABS: ABS Basophils 0.1 10^3/uL (0.0-0.1); ABS Eosinophils 0.6 10^3/uL (0.0-0.5); ABS Lymphocytes 1.8 10^3/uL (1.0-4.8); ABS Monocytes 1.3 10^3/uL (0.0-1.1); ABS Neutrophils 4.8 10^3/uL (1.5-7.6); ABS Nucleated RBC 0.01 10^3/ul; Eosinophil % 7.4 %; Hemoglobin 10.7 g/dL (13.2-16.3); Lymphocyte % 20.5 %; Mean Corpuscular Hemoglobin 31.1 pg (27-33); Mean Corpuscular Hgb Conc 34.4 g/dL (31-36); Mean Corpuscular Volume 90.4 fL (80-97); Mean Platelet Volume 7.7 fL (7.5-11.2); Nucleated Red Blood Cells % 0.1 %/100WBC (0.0-0.8); Platelet Count 218 10^3/uL (150-450); Red Blood Count 3.43 10^6/uL (4.06-5.63); Red Cell Distribution Width 13.5 % (12-17); White Blood Count 8.6 10^3/uL (3.6-10.2)
[2023-03-04 04:51] LABS: Anion Gap 6 mmol/L (2-16); Blood Urea Nitrogen 20 mg/dL (6-24); CO2 Carbon Dioxide 24 mmol/L (22-32); Calcium 8.2 mg/dL (8.6-10.3); Chloride 103 mmol/L (101-111); Creatinine, Serum 1.06 mg/dL (0.67-1.17); Glucose 117 mg/dL (70-100); Magnesium 1.9 mg/dL (1.9-2.7); Sodium 133 mmol/L (135-145); eGFR CKD-EPI 69.2 (>60)
[2023-03-04 05:23] LABS: Phosphorus 3.9 mg/dL (2.5-5.0); Potassium Redraw 3.8 mmol/L (3.5-5.0)
[2023-03-04 08:15] LABS: % Iron Saturation 10 % (15-55); .Transferrin 167 mg/dL (203-362); Iron 23 ug/dL (50-212); Total Iron Binding Capacity 234 mcg/dL (250-450); Unsaturated Iron Binding 211 ug/dL
[2023-03-04] MEDS: CMCS: Alfuzosin ER 10 mg TAB.ER (NF) 10 MG TAB.ER PO SCH (08:24)
[2023-03-04 08:37] LABS: Ferritin 110.5 ng/mL (24-336)
[2023-03-04 08:41] LABS: Folate > 20.00 ng/mL (5.90-24.80)
[2023-03-04 08:44] LABS: Vitamin B12 342 pg/mL (180-914)
[2023-03-04] MEDS ORDERED: Magnesium Sulfate 2 gm BAG 2 GM/50 ML BAG IVPB ONE (14:49)
[2023-03-04] MEDS: Ferric Gluconate IV 250 MG in NS 0.9% 250 ml 200 ML IVPB SCH (17:00)
[2023-03-04] MEDS: Enoxaparin 40 MG/0.4 ML SYR SUBCUT SCH (22:13)
[2023-03-05 06:27] LABS: ABS Basophils 0.1 10^3/uL (0.0-0.1); ABS Eosinophils 0.6 10^3/uL (0.0-0.5); ABS Lymphocytes 1.5 10^3/uL (1.0-4.8); ABS Monocytes 1.1 10^3/uL (0.0-1.1); ABS Neutrophils 4.3 10^3/uL (1.5-7.6); ABS Nucleated RBC 0.01 10^3/ul; Eosinophil % 8.4 %; Hematocrit 31.2 % (38-53); Hemoglobin 10.8 g/dL (13.2-16.3); Mean Corpuscular Hemoglobin 31.2 pg (27-33); Mean Corpuscular Hgb Conc 34.6 g/dL (31-36); Mean Corpuscular Volume 90.2 fL (80-97); Nucleated Red Blood Cells % 0.1 %/100WBC (0.0-0.8); Platelet Count 245 10^3/uL (150-450); Red Blood Count 3.46 10^6/uL (4.06-5.63); Red Cell Distribution Width 13.5 % (12-17); White Blood Count 7.7 10^3/uL (3.6-10.2)
[2023-03-05 06:45] LABS: Calcium 8.2 mg/dL (8.6-10.3); Creatinine, Serum 1.08 mg/dL (0.67-1.17); Magnesium 2.3 mg/dL (1.9-2.7); Potassium 3.9 mmol/L (3.5-5.0); eGFR CKD-EPI 67.7 (>60)
[2023-03-05] MEDS: Ferric Gluconate IV 250 MG in NS 0.9% 250 ml 200 ML IVPB SCH (07:55)
[2023-03-05] MEDS: CMCS: Alfuzosin ER 10 mg TAB.ER (NF) 10 MG TAB.ER PO SCH (07:58)
[2023-03-05 14:39] VITALS: BP 131/64
== END 2023-03-05 16:00 | disposition home or self-care (01) ==
LOC: ED 14:25 → EDHOLD 14:25 → SUATTDRO 03-03 01:40 → SSU 03-03 02:25
PROVIDERS: ADMIT Internal Medicine; ATTEND Student in an Organized Health Care Education/Training Program